=== PATIENT | male | born 1945 | race Caucasian/White ===

== ENCOUNTER → 2020-06-15 13:36 | Outpatient (BNVA) | payer MEDICARE, SELFPAY | PROVIDERS: PCP Internal Medicine; Referring Provider Internal Medicine; Visit Provider Internal Medicine | DX: I25.10 Atherosclerotic heart disease of native coronary artery without angina pectoris (principal); I48.3 Typical atrial flutter; Z87.891 Personal history of nicotine dependence; Z79.82 Long term (current) use of aspirin | CPT/HCPCS: 99214 ==

== ENCOUNTER 2020-09-09 06:08 | Outpatient (REF) | payer MEDICARE, SELFPAY ==
[2020-09-09 08:31] LABS: Prostate Specific Antigen 5.26 ng/mL (<0.05-4.0)
== END 2020-09-09 06:09 | disposition home or self-care (01) ==
LOC: HO.LAB 06:08
PROVIDERS: Visit Provider Internal Medicine
DX: Z12.5 Encounter for screening for malignant neoplasm of prostate (principal); R97.20 Elevated prostate specific antigen [PSA]
CPT/HCPCS: 36415; 84153

== ENCOUNTER 2020-10-19 09:51 | Outpatient (REF) | payer MEDICARE, SELFPAY | END 2020-10-19 09:52 | disposition home or self-care (01) | LOC: HO.MDS 09:51 | PROVIDERS: PCP Internal Medicine; Visit Provider Psychiatry & Neurology Neurology | DX: G70.00 Myasthenia gravis without (acute) exacerbation (principal) | CPT/HCPCS: 96365; 96366; J1572 ==

== ENCOUNTER 2020-10-20 07:30 | Outpatient (REF) | payer MEDICARE, SELFPAY | END 2020-10-20 07:31 | disposition home or self-care (01) | LOC: HO.MDS 07:30 | PROVIDERS: PCP Internal Medicine; Visit Provider Psychiatry & Neurology Neurology | DX: G70.00 Myasthenia gravis without (acute) exacerbation (principal) | CPT/HCPCS: 96365; 96366; J1572 ==

== ENCOUNTER 2020-10-21 07:22 | Outpatient (REF) | payer MEDICARE, SELFPAY | END 2020-10-21 07:23 | disposition home or self-care (01) | LOC: HO.MDS 07:22 | PROVIDERS: PCP Internal Medicine; Visit Provider Psychiatry & Neurology Neurology | DX: G70.00 Myasthenia gravis without (acute) exacerbation (principal) | CPT/HCPCS: 96365; 96366; J1572 ==

== ENCOUNTER 2020-10-22 07:22 | Outpatient (REF) | payer MEDICARE, SELFPAY | END 2020-10-22 07:23 | disposition home or self-care (01) | LOC: HO.MDS 07:22 | PROVIDERS: PCP Internal Medicine; Visit Provider Psychiatry & Neurology Neurology | DX: G70.00 Myasthenia gravis without (acute) exacerbation (principal) | CPT/HCPCS: 96365; 96366; J1572 ==

== ENCOUNTER 2020-11-23 07:25 | Outpatient (REF) | payer MEDICARE, SELFPAY | END 2020-11-23 07:26 | disposition home or self-care (01) | LOC: HO.MDS 07:25 | PROVIDERS: PCP Internal Medicine; Visit Provider Psychiatry & Neurology Neurology | DX: G70.00 Myasthenia gravis without (acute) exacerbation (principal) | CPT/HCPCS: 96365; 96366; J1572 ==

== ENCOUNTER 2020-11-24 07:20 | Outpatient (REF) | payer MEDICARE, SELFPAY | END 2020-11-24 07:21 | disposition home or self-care (01) | LOC: HO.MDS 07:20 | PROVIDERS: PCP Internal Medicine; Visit Provider Psychiatry & Neurology Neurology | DX: G70.00 Myasthenia gravis without (acute) exacerbation (principal) | CPT/HCPCS: 96365; 96366; J1572 ==

== ENCOUNTER 2020-11-25 07:21 | Outpatient (REF) | payer MEDICARE, SELFPAY | END 2020-11-25 07:22 | disposition home or self-care (01) | LOC: HO.MDS 07:21 | PROVIDERS: PCP Internal Medicine; Visit Provider Psychiatry & Neurology Neurology | DX: G70.00 Myasthenia gravis without (acute) exacerbation (principal) | CPT/HCPCS: 96365; 96366; J1572 ==

== ENCOUNTER 2020-11-26 07:20 | Outpatient (REF) | payer MEDICARE, SELFPAY | END 2020-11-26 07:21 | disposition home or self-care (01) | LOC: HO.MDS 07:20 | PROVIDERS: PCP Internal Medicine; Visit Provider Psychiatry & Neurology Neurology | DX: G70.00 Myasthenia gravis without (acute) exacerbation (principal) | CPT/HCPCS: 96365; 96366; J1572 ==

== ENCOUNTER → 2020-12-14 12:55 | Outpatient (BNVA) | payer MEDICARE, SELFPAY | PROVIDERS: PCP Internal Medicine; Visit Provider Internal Medicine | DX: Z45.018 Encounter for adjustment and management of other part of cardiac pacemaker (principal); I25.10 Atherosclerotic heart disease of native coronary artery without angina pectoris; I48.3 Typical atrial flutter; I10 Essential (primary) hypertension | CPT/HCPCS: 99212 ==

== ENCOUNTER 2020-12-21 07:22 | Outpatient (REF) | payer MEDICARE, SELFPAY | END 2020-12-21 07:23 | disposition home or self-care (01) | LOC: HO.MDS 07:22 | PROVIDERS: PCP Internal Medicine; Visit Provider Psychiatry & Neurology Neurology | DX: G70.00 Myasthenia gravis without (acute) exacerbation (principal) | CPT/HCPCS: 96365; 96366; J1572 ==

== ENCOUNTER 2020-12-22 07:22 | Outpatient (REF) | payer MEDICARE, SELFPAY | END 2020-12-22 07:23 | disposition home or self-care (01) | LOC: HO.MDS 07:22 | PROVIDERS: PCP Internal Medicine; Visit Provider Psychiatry & Neurology Neurology | DX: G70.00 Myasthenia gravis without (acute) exacerbation (principal) | CPT/HCPCS: 96365; 96366; J1572 ==

== ENCOUNTER 2020-12-23 07:23 | Outpatient (REF) | payer MEDICARE, SELFPAY | END 2020-12-23 07:24 | disposition home or self-care (01) | LOC: HO.MDS 07:23 | PROVIDERS: PCP Internal Medicine; Visit Provider Psychiatry & Neurology Neurology | DX: G70.00 Myasthenia gravis without (acute) exacerbation (principal) | CPT/HCPCS: 96365; 96366; J1572 ==

== ENCOUNTER 2020-12-24 10:37 | Outpatient (REF) | payer MEDICARE, SELFPAY | END 2020-12-24 10:38 | disposition home or self-care (01) | LOC: HO.MDS 10:37 | PROVIDERS: PCP Internal Medicine; Visit Provider Psychiatry & Neurology Neurology | DX: G70.00 Myasthenia gravis without (acute) exacerbation (principal) | CPT/HCPCS: 96365; 96366; J1572 ==

== ENCOUNTER 2021-01-04 10:39 | Outpatient (REF) | payer MEDICARE, SELFPAY ==
[2021-01-04 11:16] LABS: Estimated Average Glucose 128 mg/dL; Hemoglobin A1c % 6.1 %
[2021-01-04 12:11] LABS: Alanine Aminotransferase 40 U/L (0-40); Albumin Level 3.3 g/dL (3.5-5.0); Alkaline Phosphatase 52 U/L (39-117); Aspartate Amino Transferase 33 U/L (5-37); Bilirubin Direct 0.5 mg/dL (0.0-0.5); Bilirubin Total 1.2 mg/dL (0.0-1.0); Cholesterol 127 mg/dL; Glucose Fasting 79 mg/dL (60-99); HDL Cholesterol 43 mg/dL; LDL Cholesterol Calculated 63 mg/dl; Total Protein 7.2 g/dL (6.5-8.0); Triglycerides 108 mg/dL
[2021-01-04 12:20] LABS: PSA,Total (Free>4and<10) 5.05 ng/mL (0.00-4.00)
[2021-01-04 13:36] LABS: Reflex LDLD? No
[2021-01-05 11:37] LABS: Percent Free Prostate Spec Ag 20 % (calc) (>25); Prostate Specific Ag Total 5.1 ng/mL (< OR = 4.0)
== END 2021-01-04 10:40 | disposition home or self-care (01) ==
LOC: HO.LNP 10:39
PROVIDERS: Visit Provider Internal Medicine
DX: R97.20 Elevated prostate specific antigen [PSA] (principal); R73.03 Prediabetes; E78.00 Pure hypercholesterolemia, unspecified; Z12.5 Encounter for screening for malignant neoplasm of prostate
CPT/HCPCS: 80061; 80076; 82947; 83036; 84153; 84154

== ENCOUNTER 2021-01-22 08:29 | Inpatient (IN) | payer MEDICARE, SELFPAY ==
[2021-01-22] VITALS (9 sets, daily range): BP systolic 77–121; BP diastolic 48–76; PULSE 60–86; RESP 16–22; TEMP 36.1–36.6; O2SAT 95–98; BMI 29.2
--- NOTE | ~2021-01-22 | CT_ITS ---
EXAMINATION: CT ANGIOGRAM OF THE CHEST WITH AND WITHOUT CONTRAST (CT PULMONARY ANGIOGRAM FOR PE) CLINICAL INFORMATION: Reason for Exam rule out PE. Chest pain/syncope COMPARISON: None TECHNIQUE: Prior to contrast administration, noncontrast localization images were obtained. Subsequently, multidetector volumetric imaging was performed from the thoracic inlet to below the diaphragms following the administration of 65 mL Omnipaque 350 intravenous contrast. No contrast reaction reported Sagittal, coronal, and MIP oblique sagittal reformatted images were obtained on the CT workstation, uploaded to PACS, and reviewed. This CT examination was performed using dose optimization techniques as appropriate, variously including the following: *Automated exposure control *Adjustment of mA and/or kV according to patient size (this includes techniques or standardized protocols for targeted exams where dose is matched to indication/reason for exam; i.e. extremities or head) *Use of iterative reconstruction technique Total exam dose-length product 338 mGy-cm FINDINGS: QUALITY OF STUDY/CONTRAST BOLUS: Satisfactory. PULMONARY ARTERIES: No central or segmental pulmonary emboli. THORACIC AORTA: No aneurysm or dissection. LUNG: Quality is degraded by patient respiratory motion artifact. No dense consolidation, mass, or obvious lung nodule. PLEURA: No pleural effusion or pneumothorax. MEDIASTINUM: Normal heart size. No pericardial effusion. No hilar or mediastinal lymphadenopathy. No evidence of septal bowing or right heart strain. Prominent mediastinal fat. CHEST WALL/AXILLA: No axillary or internal mammary lymphadenopathy. Incidental intramuscular lipoma measuring approximately 4.5 cm within the superolateral aspect of the left latissimus dorsi muscle. OSSEOUS STRUCTURES: Chronic superior endplate fracture of T11 with approximately 50% loss of vertebral body height centrally. UPPER ABDOMEN: Unremarkable. No reflux of contrast into the hepatic veins to suggest elevated right heart pressures. CT/CT angio chest PE protocol IMPRESSION: No evidence of pulmonary embolic disease. No parenchymal consolidation or mass. No acute findings. VTE: negative
--- NOTE | ~2021-01-22 | XR_ITS ---
EXAMINATION: XR CHEST CLINICAL INFORMATION: Dyspnea COMPARISON: 04/14/2018 TECHNIQUE: 2 views of the chest were obtained. FINDINGS: Lungs are adequately expanded. Dual-chamber cardiac pacemaker in place with tips of leads overlying the right atrium and right ventricle. Cardiac silhouette is normal in size. The hilar contours are normal. The pulmonary vascular pattern is normal. No pulmonary edema or pleural effusion. Thin linear opacity of scar or atelectasis at the right base. Bones are intact. XR/XR chest 2V IMPRESSION: No acute pulmonary disease.
--- NOTE | ~2021-01-22 | CT_ITS ---
EXAMINATION: CT BRAIN AND CT CERVICAL SPINE WITHOUT CONTRAST. CLINICAL INFORMATION: Dizziness and syncope. COMPARISON: None TECHNIQUE: 5 mm thin axial and reformatted 2 mm thin sagittal and coronal images of brain were obtained. Subsequently axial 3 mm thin and reformatted 2 mm thin sagittal and coronal images of cervical spine were obtained. [facility] FINDINGS: Brain: There is no acute intra-axial, extra-axial bleed, masses or midline shift. There is no acute infarction in evolution. There is no edema. The lateral ventricles are symmetrical in size and configuration without enlargement. Bone windows reveal no calvarial abnormality. There is no scalp soft tissue abnormality. Bilateral paranasal sinuses and mastoid air cells are well-aerated. Cervical spine: There is mild straightening of cervical lordosis. The vertebral heights are normal. There is mild loss of C3-C4, C5-C6 and C6-C7 disc heights. There is grade 1 anterolisthesis C3 over C4. Rest of the vertebral alignment is normal. There is moderate left C3-C4 facet joint arthropathy. The craniovertebral junction and the C1-C2 alignment is normal. There are large ventral osteophyte C5-C6 disc level. The craniovertebral junction and the C1-C2 alignment is normal. The lung apices are clear. CT/CT cervical spine wo con IMPRESSION: No acute intracranial process seen There is mild straightening of cervical lordosis likely spasm. There are degenerative disc changes C3-C4, C5-C6 disc levels with moderate ventral spondylosis. Grade 1 anterolisthesis C3 over C4.. No acute fracture or dislocation.
--- NOTE | ~2021-01-22 | CT_ITS ---
EXAMINATION: CT BRAIN AND CT CERVICAL SPINE WITHOUT CONTRAST. CLINICAL INFORMATION: Dizziness and syncope. COMPARISON: None TECHNIQUE: 5 mm thin axial and reformatted 2 mm thin sagittal and coronal images of brain were obtained. Subsequently axial 3 mm thin and reformatted 2 mm thin sagittal and coronal images of cervical spine were obtained. DL 1619 FINDINGS: Brain: There is no acute intra-axial, extra-axial bleed, masses or midline shift. There is no acute infarction in evolution. There is no edema. The lateral ventricles are symmetrical in size and configuration without enlargement. Bone windows reveal no calvarial abnormality. There is no scalp soft tissue abnormality. Bilateral paranasal sinuses and mastoid air cells are well-aerated. Cervical spine: There is mild straightening of cervical lordosis. The vertebral heights are normal. There is mild loss of C3-C4, C5-C6 and C6-C7 disc heights. There is grade 1 anterolisthesis C3 over C4. Rest of the vertebral alignment is normal. There is moderate left C3-C4 facet joint arthropathy. The craniovertebral junction and the C1-C2 alignment is normal. There are large ventral osteophyte C5-C6 disc level. The craniovertebral junction and the C1-C2 alignment is normal. The lung apices are clear. CT/CT head/brain wo con IMPRESSION: No acute intracranial process seen There is mild straightening of cervical lordosis likely spasm. There are degenerative disc changes C3-C4, C5-C6 disc levels with moderate ventral spondylosis. Grade 1 anterolisthesis C3 over C4.. No acute fracture or dislocation.
--- NOTE | 2021-01-22 08:39 | ECG_ITS ---
Test Reason : WEAKNESS Blood Pressure : / mmHG Vent. Rate : 060 BPM Atrial Rate : 069 BPM P-R Int : 000 ms QRS Dur : 188 ms QT Int : 440 ms P-R-T Axes : 000 103 -36 degrees QTc Int : 440 ms V paced rhythm Abnormal ECG When compared with ECG of 13-FEB-2018 15:28, V paced rhythm has replaced Sinus rhythm Referred By: Generic ED Physician Electronically Signed By:Lang Caldwell
--- NOTE | 2021-01-22 09:15 | ED.GENADULT ---
HPI - General Adult General Chief complaint: Dizziness Stated complaint: syncope Time Seen by Provider: 01/22/21 08:48 Source: patient Mode of arrival: ambulatory Limitations: no limitations History of Present Illness HPI narrative: Patient presents to ED for passing out. Patient states this morning he got up from the chair when he woke up was on the ground. Patient states yesterday he felt dizzy and then passed out. Patient states also having pleuritic chest pain for the past 2 days. Patient denies today having dizziness and then pass out. Patient states just got up and passed out. Patient denies any swelling of lower extremities, calf pain, coughing up blood, fever, or chills. Patient denies any neuro deficit, slurred speech, new loss of vision, paralysis of extremities. Related Data Home Medications Medication Instructions Recorded Confirmed apixaban 5 mg tablet 5 mg PO BID 06/15/20 01/22/21 aspirin 81 mg tablet,delayed 81 mg PO DAILY 06/15/20 01/22/21 release atorvastatin 40 mg tablet 40 mg PO BEDTIME tab 06/15/20 01/22/21 cholecalciferol (vitamin D3) 50 50 mcg PO DAILY 06/15/20 01/22/21 mcg (2,000 unit) capsule colchicine 0.6 mg tablet 0.6 mg PO TID PRN 06/15/20 01/22/21 levothyroxine 25 mcg tablet 25 mcg PO DAILY 06/15/20 01/22/21 pyridostigmine bromide 60 mg tablet 60 mg PO TID 06/15/20 01/22/21 tamsulosin 0.4 mg capsule 0.4 mg PO BEDTIME 06/15/20 01/22/21 valsartan 320 1 tab PO DAILY 06/15/20 01/22/21 mg-hydrochlorothiazide 12.5 mg tablet prednisone 10 mg PO DAILY 01/12/21 01/22/21 artificial tears(hypromellose) 1 drp OPHTHALMIC-LEFT BEDTIME PRN 01/22/21 01/22/21 [GenTeal (hypromellose)] Previous Rx's Medication Instructions Recorded metoprolol tartrate 25 mg tablet 12.5 mg PO BID #90 tab 11/12/20 Allergies Allergy/AdvReac Type Severity Reaction Status Date / Time No Known Allergies Allergy Verified 12/14/20 13:21 Review of Systems Review of Systems: Yes all other systems are reviewed and are negative Constitutional: Constitutional: Reports as per HPI and Reports no additional constitutional complaints Eyes: Eyes: Reports as per HPI and Reports no additional eye complaints ENT: Reports system reviewed and no additional complaints, except as documented and Reports as per HPI Cardiovascular: Cardiovascular: Reports as per HPI, Reports no additional cardiovascular complaints and Reports chest pain (Pleuritic) Respiratory: Respiratory: Reports as per HPI and Reports no additional respiratory complaints Gastrointestinal: Gastrointestinal: Reports as per HPI and Reports no additional gastrointestinal complaints Genitourinary: Genitourinary: Reports no additional male genitourinary complaints and Reports as per HPI Musculoskeletal: Musculoskeletal: Reports no additional musculoskeletal complaints and Reports as per HPI Neurologic: Reports system reviewed and no additional complaints, except as documented and Reports as per HPI Comments: syncope Psychiatric: Psychiatric: Reports no additional psychiatric complaints and Reports as per HPI PMF Past Medical History Medical History (Updated 01/22/21 @ 16:13 by GISELL Arnett) Arthritis Atherosclerotic cardiovascular disease Back pain CVA (cerebral vascular accident) Elevated cholesterol Essential hypertension Gout Hx of hypercalcemia Ocular myasthenia gravis On anticoagulant therapy On beta loly at home Thyroid disease Typical atrial flutter Surgical History (Updated 01/12/21 @ 15:04 by Carol García) H/O carotid endarterectomy History of cardiac catheterization (~02/15/18) History of cardiac pacemaker (~04/13/18) History of laparoscopic cholecystectomy History of left cataract surgery Hx of colonoscopy Family History Family History Father No problems noted. Mother No problems noted. Social History Social History Alcohol intake: current Alcohol intake frequency: a few times a week Patient Tobacco Use Status: Former Tobacco user Smoked in Last 30 Days: No Use of substances other than those prescribed or required for medical reasons: No Advance Directives: No Advance Directives Information Provided: No Physical Exam Vital Signs: Vital Signs: Last Vital Signs Temp 97.8 F 01/22/21 15:27 Pulse 61 01/22/21 15:27 Resp 22 H 01/22/21 15:27 BP 121/76 01/22/21 15:30 Pulse Ox 97 06/04/21 15:27 Body Mass Index 29.2 Const: General: cooperative, healthy appearing, comfortable, no acute distress, well developed, alert and awake HENMT: Head: Yes normal to inspection, Yes No palpable skull fracture present, Yes normocephalic, Yes atraumatic and No abrasion Eyes: Other: 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 General: appearance normal, both eyes and all related structures Neck: Neck: Yes normal visual inspection, Yes full ROM, Yes no lymphadenopathy, Yes no meningeal signs, Yes trachea midline, Yes supple and No tender Chest: Chest palpation & inspection: normal inspection of the chest and normal palpation of entire chest wall Resp: Effort & Inspection: normal respiratory effort and able to speak in complete sentences Auscultation: clear to auscultation bilaterally Cardio: Jugular venous distension: no JVD Heart sounds: S1 normal heart sound present and S2 normal heart sound present GI: Inspection: Yes normal to inspection and No abdominal wall ecchymosis Palpation (GI): Soft to palpation, not firm, nontender, no guarding and not rigid : General: No CVA tenderness and Yes no CVA tenderness Back/Spine/Pelvis: Back: no CVA tenderness, No CVA tenderness and No back tenderness Skin: General skin exam: no rashes or lesions noted and elasticity normal Neuro: Other: Negative facial droop. Negative slurred speech. Negative pronator drift. All extremities equal strength 5+. Finger to nose and rapid hand movement intact. Negative Romberg. No vision of right eye which is chronic as per patient General: patient oriented x3, gait normal, no meningeal signs and CN's II-XI intact bilaterally Extrem: General: Yes normal to inspection and Yes full ROM Psych: Appearance: grossly normal, well kempt and not disheveled Course Course Course Narrative: Patient had labs, EKG, and imaging. Reevaluation(s) Reevaluation #1: Pager EKG sent to artists' model to from a possibility there is no paced rhythm on EKG and pacer maker is not working. EKG was sent to Dr. Caldwell of Cardiology and he reviewed the EKG and states it is paced. Orthostatics were attempted but could not be completely because patient felt dizzy. Reevaluation #2: Spoke with Dr. Rodriguez of Radiology who does not recommend head CTA and only chest CTA due to patient's creatinine.. Recommends doing dry head CT and do the chest CT to rule out PE. Will give patient only 1.5 L due to BNP of 500. Negative for any neuro deficit Reevaluation #3: Spoke with Dr. Camacho of hospitalist admitting aware of case for admission. He will be form of head CT and chest CT when results come back. Time: 11:39 Additional Reevaluation(s): Chest CTA negative for PE. Patient to be admitted for syncope. Head and neck negative for fracture brain bleed, or stroke. Patient blood pressure systolic was 100 on the monitor when he stood down to 86 systolic. At 13:49 patient is not hypertensive 161/141. Rectal exam was done due to slight drop in hemoglobin/hematocrit. Occult guaiac ordered. At 15:07. Dr. Baez of Gastroenterology was contacted due to patient's positive occult stool and being on Eliquis. He was admitted with patient's history, physical exam, and diagnostics. At 16:10 orthostatics negative. Medical Decision Making MDM Narrative Medical decision making narrative: Syncope, ZANA, mild hypo natremia. CHF Lab Data Result diagrams: 01/22/21 09:38 01/22/21 09:38 Labs: Lab Results 01/22/21 01/22/21 01/22/21 Range/Units 09:38 09:38 09:38 WBC 12.8 H (4.8-10.8) X10*3/uL RBC 3.71 L (4.60-5.80) X10*6/uL Hgb 12.0 L (14.0-18.0) g/dl Hct 34.1 L (42-52) % MCV 91.9 (80-98) fL MCH 32.3 (27.0-33.0) pg MCHC 35.2 (31.0-36.0) g/dl RDW 13.2 (11.0-16.0) % Plt Count 204 (160-400) X10*3/uL MPV 9.1 L (9.4-12.4) fL Immature Gran % (Auto) 1.2 H (0.0-0.4) % Neut % (Auto) 66.1 (45-73) % Lymph % (Auto) 23.8 (20-40) % [place] % (Auto) 8.4 (2-11) % Eos % (Auto) 0.3 (0-4) % Baso % (Auto) 0.2 (0-2) % Lymph # (Auto) 3.1 (1.2-4.9) X10*3/uL [place] # (Auto) 1.1 (0.1-1.2) X10*3/uL Eos # (Auto) 0.0 (0.0-0.4) X10*3/uL Baso # (Auto) 0.0 (0.0-0.2) X10*3/uL Abs Immat Gran (auto) 0.15 H (0.00-0.03) X10*3/uL Absolute Neuts (auto) 8.5 H (2.0-8.3) X10*3/uL Absolute Nucleated RBC 0.000 (0.0-0.012) X10*3/uL Nucleated RBC % (auto) 0.0 (0.0-0.2) /100WBC PT 15.8 H (10.8-13.0) SEC INR 1.3 H (0.9-1.1) APTT 30.5 (24.1-38.0) SEC Sodium 127 L (135-145) mmol/L Potassium 4.1 (3.3-5.1) mmol/L Chloride 94 L (96-108) mmol/L Carbon Dioxide 23 (22-29) mmol/L Anion Gap 14 (12-20) BUN 26 H (9-16) mg/dL Creatinine 1.65 H (0.5-1.4) mg/dL Estim Creat Clear Calc 38.2 Estimated GFR 41 Random Glucose 118 H (60-115) mg/dL Calcium 9.9 (8.4-10.2) mg/dL Total Bilirubin 1.6 H (0.0-1.0) mg/dL AST 27 (5-37) U/L ALT 31 (0-40) U/L Alkaline Phosphatase 57 (39-117) U/L Troponin I High Sens (<3.5-35.0) ng/L B-Natriuretic Peptide (<100) pg/mL Total Protein 6.1 L (6.5-8.0) g/dL Albumin 3.5 (3.5-5.0) g/dL Urine Color Urine Appearance Urine pH (5.0-8.0) Ur Specific [place] (1.005-1.025) Urine Protein (NEG-TRACE) MG/DL Urine Glucose (UA) (NEG) MG/DL Urine Ketones (NEG) MG/DL Urine Blood (NEG) Urine Nitrite (NEG) Ur Leukocyte Esterase (NEG) Urine RBC (0) /HPF Urine WBC (0-4) /HPF Ur Squamous Epith Cells /LPF Urine Bacteria /LPF Stool Occult Blood (NEGATIVE) COVID-19 ([facility]) (Negative) COVID-19 Clin Com 01/22/21 01/22/21 01/22/21 Range/Units 09:38 09:38 11:31 WBC (4.8-10.8) X10*3/uL RBC (4.60-5.80) X10*6/uL Hgb (14.0-18.0) g/dl Hct (42-52) % MCV (80-98) fL MCH (27.0-33.0) pg MCHC (31.0-36.0) g/dl RDW (11.0-16.0) % Plt Count (160-400) X10*3/uL MPV (9.4-12.4) fL Immature Gran % (Auto) (0.0-0.4) % Neut % (Auto) (45-73) % Lymph % (Auto) (20-40) % [place] % (Auto) (2-11) % Eos % (Auto) (0-4) % Baso % (Auto) (0-2) % Lymph # (Auto) (1.2-4.9) X10*3/uL [place] # (Auto) (0.1-1.2) X10*3/uL Eos # (Auto) (0.0-0.4) X10*3/uL Baso # (Auto) (0.0-0.2) X10*3/uL Abs Immat Gran (auto) (0.00-0.03) X10*3/uL Absolute Neuts (auto) (2.0-8.3) X10*3/uL Absolute Nucleated RBC (0.0-0.012) X10*3/uL Nucleated RBC % (auto) (0.0-0.2) /100WBC PT (10.8-13.0) SEC INR (0.9-1.1) APTT (24.1-38.0) SEC Sodium (135-145) mmol/L Potassium (3.3-5.1) mmol/L Chloride (96-108) mmol/L Carbon Dioxide (22-29) mmol/L Anion Gap (12-20) BUN (9-16) mg/dL Creatinine (0.5-1.4) mg/dL Estim Creat Clear Calc Estimated GFR Random Glucose (60-115) mg/dL Calcium (8.4-10.2) mg/dL Total Bilirubin (0.0-1.0) mg/dL AST (5-37) U/L ALT (0-40) U/L Alkaline Phosphatase (39-117) U/L Troponin I High Sens 12.4 (<3.5-35.0) ng/L B-Natriuretic Peptide 533 H (<100) pg/mL Total Protein (6.5-8.0) g/dL Albumin (3.5-5.0) g/dL Urine Color YELLOW Urine Appearance CLEAR Urine pH 6.0 (5.0-8.0) Ur Specific [place] 1.025 (1.005-1.025) Urine Protein TRACE (NEG-TRACE) MG/DL Urine Glucose (UA) NEG (NEG) MG/DL Urine Ketones NEG (NEG) MG/DL Urine Blood 3+ H (NEG) Urine Nitrite NEG (NEG) Ur Leukocyte Esterase NEG (NEG) Urine RBC 30-49 H (0) /HPF Urine WBC 0-2 (0-4) /HPF Ur Squamous Epith Cells NONE /LPF Urine Bacteria TRACE /LPF Stool Occult Blood (NEGATIVE) COVID-19 ([facility]) Negative (Negative) COVID-19 Clin Com See Note 01/22/21 01/22/21 Range/Units 14:09 Unknown WBC (4.8-10.8) X10*3/uL RBC (4.60-5.80) X10*6/uL Hgb (14.0-18.0) g/dl Hct (42-52) % MCV (80-98) fL MCH (27.0-33.0) pg MCHC (31.0-36.0) g/dl RDW (11.0-16.0) % Plt Count (160-400) X10*3/uL MPV (9.4-12.4) fL Immature Gran % (Auto) (0.0-0.4) % Neut % (Auto) (45-73) % Lymph % (Auto) (20-40) % [place] % (Auto) (2-11) % Eos % (Auto) (0-4) % Baso % (Auto) (0-2) % Lymph # (Auto) (1.2-4.9) X10*3/uL [place] # (Auto) (0.1-1.2) X10*3/uL Eos # (Auto) (0.0-0.4) X10*3/uL Baso # (Auto) (0.0-0.2) X10*3/uL Abs Immat Gran (auto) (0.00-0.03) X10*3/uL Absolute Neuts (auto) (2.0-8.3) X10*3/uL Absolute Nucleated RBC (0.0-0.012) X10*3/uL Nucleated RBC % (auto) (0.0-0.2) /100WBC PT (10.8-13.0) SEC INR (0.9-1.1) APTT (24.1-38.0) SEC Sodium (135-145) mmol/L Potassium (3.3-5.1) mmol/L Chloride (96-108) mmol/L Carbon Dioxide (22-29) mmol/L Anion Gap (12-20) BUN (9-16) mg/dL Creatinine (0.5-1.4) mg/dL Estim Creat Clear Calc Estimated GFR Random Glucose (60-115) mg/dL Calcium (8.4-10.2) mg/dL Total Bilirubin (0.0-1.0) mg/dL AST (5-37) U/L ALT (0-40) U/L Alkaline Phosphatase (39-117) U/L Troponin I High Sens (<3.5-35.0) ng/L B-Natriuretic Peptide (<100) pg/mL Total Protein (6.5-8.0) g/dL Albumin (3.5-5.0) g/dL Urine Color YELLOW Urine Appearance CLEAR Urine pH 6.0 (5.0-8.0) Ur Specific [place] 1.010 (1.005-1.025) Urine Protein NEG (NEG-TRACE) MG/DL Urine Glucose (UA) NEG (NEG) MG/DL Urine Ketones NEG (NEG) MG/DL Urine Blood 2+ H (NEG) Urine Nitrite NEG (NEG) Ur Leukocyte Esterase NEG (NEG) Urine RBC (0) /HPF Urine WBC (0-4) /HPF Ur Squamous Epith Cells /LPF Urine Bacteria /LPF Stool Occult Blood POSITIVE (NEGATIVE) COVID-19 ([facility]) (Negative) COVID-19 Clin Com ECG Data Interpretation: Wide QRS rhythm. I had right axis. Left bundle-branch block. Among the EKG. Ventricular rate 60. QRS duration 188. QTC 440. Negative STEMI Discharge Plan Discharge Clinical Impression: Syncope, ZANA (acute kidney injury), CHF (congestive heart failure), Acute hyponatremia Patient Disposition: Admitted As Inpatient
[2021-01-22] MEDS: 0.9 % Sodium Chloride 1,000 ML 999 ML IV ×2 (09:40→11:39)
[2021-01-22 09:45] LABS: MANUAL DIFF FLAG NO
[2021-01-22 09:46] LABS: Basophils Percent Auto 0.2 % (0-2); Eosinophils Percent Auto 0.3 % (0-4); Hematocrit 34.1 % (42-52); Imm Gran Abs Auto 0.15 X10*3/uL (0.00-0.03); Imm Gran Pct Auto 1.2 % (0.0-0.4); Lymphocytes Absolute Auto 3.1 X10*3/uL (1.2-4.9); Lymphocytes Percent Auto 23.8 % (20-40); Mean Corpuscular HGB Conc 35.2 g/dl (31.0-36.0); Mean Corpuscular Hemoglobin 32.3 pg (27.0-33.0); Mean Corpuscular Volume 91.9 fL (80-98); Mean Platelet Volume 9.1 fL (9.4-12.4); Monocytes Absolute Auto 1.1 X10*3/uL (0.1-1.2); Monocytes Percent Auto 8.4 % (2-11); Neutrophils Absolute Auto 8.5 X10*3/uL (2.0-8.3); Neutrophils Percent Auto 66.1 % (45-73); Platelet Count 204 X10*3/uL (160-400); Red Blood Count 3.71 X10*6/uL (4.60-5.80); Red Cell Distribution Width 13.2 % (11.0-16.0); White Blood Count 12.8 X10*3/uL (4.8-10.8)
[2021-01-22 09:55] LABS: INTERNATIONAL NORM RATIO 1.3 (0.9-1.1); Prothrombin Time 15.8 SEC (10.8-13.0)
[2021-01-22 09:57] LABS: Partial Thromboplastin Time 30.5 SEC (24.1-38.0)
[2021-01-22 10:02] LABS: COVID-19 Test Negative (Negative); IDNOW Serial# 9DD0AD1C
[2021-01-22 10:19] LABS: Alanine Aminotransferase 31 U/L (0-40); Albumin Level 3.5 g/dL (3.5-5.0); Alkaline Phosphatase 57 U/L (39-117); Anion Gap 14 (12-20); Aspartate Amino Transferase 27 U/L (5-37); Bilirubin Total 1.6 mg/dL (0.0-1.0); Blood Urea Nitrogen 26 mg/dL (9-16); Calcium 9.9 mg/dL (8.4-10.2); Carbon Dioxide 23 mmol/L (22-29); Chloride 94 mmol/L (96-108); Creatinine Clr Calc Pharmacy 38.2; Estimated Glomerular Filt Rate 41; Glucose Random 118 mg/dL (60-115); Potassium 4.1 mmol/L (3.3-5.1); Sodium 127 mmol/L (135-145); Total Protein 6.1 g/dL (6.5-8.0)
[2021-01-22 10:22] LABS: B Type Natriuretic Peptide 533 pg/mL (<100); Troponin-I High Sensitivity 12.4 ng/L (<3.5-35.0)
[2021-01-22] MEDS: iohexoL 350 MG/ML 100 ML INFUS..BTL IV (11:31)
[2021-01-22 11:42] LABS: Glucose Urine UA NEG (NEG); Leukocyte Esterase Urine NEG (NEG); Nitrite Urine NEG (NEG); Specific Gravity - Urine 1.025 (1.005-1.025); Urine Blood 3+ (NEG); Urine Ketones NEG (NEG); Urine Protein TRACE MG/DL (NEG-TRACE)
[2021-01-22 11:47] LABS: Appearance Urine CLEAR; Color Urine YELLOW
[2021-01-22 12:21] LABS: WBC Urine 0-2 /HPF (0-4)
[2021-01-22 12:22] LABS: Bacteria Urine TRACE /LPF; RBC Urine 30-49 /HPF (0)
[2021-01-22 14:25] LABS: OBS Int Ctl Valid YES; OBS1 POSITIVE (NEGATIVE)
[2021-01-22 15:55] LABS: Glucose Urine UA NEG (NEG); Leukocyte Esterase Urine NEG (NEG); Nitrite Urine NEG (NEG); Urine Blood 2+ (NEG); Urine Ketones NEG (NEG); Urine Protein NEG (NEG-TRACE)
[2021-01-22 15:59] LABS: Appearance Urine CLEAR; Color Urine YELLOW
[2021-01-22 16:07] LABS: WBC Urine 0-2 /HPF (0-4)
[2021-01-22] MEDS: Pantoprazole Sodium 40 MG/10 ML VIAL 80 MG IVPUSH (16:59)
--- NOTE | 2021-01-22 17:07 | PM.IMHP ---
History of Present Illness Date of Service: 01/22/21 Chief Complaint: Syncope This is a 75-year-old male who presents to the emergency department after multiple episodes of syncope. Patient states yesterday he had 2 episodes of syncope and this morning had 1 episode. Each episode occurred shortly after standing up. Upon standing patient felt dizzy took a few steps and then passed out. He denies any palpitations. He reports chest pain when moving his upper extremities which has been present for the past 2 days. He denies any associated nausea or vomiting. He has had progressive dyspnea on exertion for the past 2 weeks. He denies any orthopnea or paroxysmal nocturnal dyspnea. His appetite and p.o. intake has not changed but he states that his tells him he does not drink enough fluid. He denies any dark or bloody stools. He denies any diarrhea or vomiting. 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 There have been no other changes to his baseline medications. On arrival to the emergency department his blood pressure was 77/48. He was given 2 L of normal saline and his blood pressure has improved and is currently 121/76. He denies any dizziness at rest. Initially he was too dizzy to have orthostatic blood pressures obtained. Lab work in the emergency department was significant for leukocytosis of 12.8, H/H of 12.0/34.1 which is a slight drop from his baseline. A rectal exam was done and his stool was Hemoccult positive. Chemistries showed sodium of 127, BUN 26, creatinine 1.65. BNP was elevated at 533. Highly sensitive troponin was drawn and have remained flat. EKG shows wide QRS rhythm with a left bundle-branch block. Review of Systems Review of Systems: Yes all other systems are reviewed and are negative Constitutional: Constitutional: Denies chills and Denies fever(s) Cardiovascular: Cardiovascular: Denies palpitations, Reports dyspnea on exertion, Denies orthopnea and Denies paroxysmal nocturnal dyspnea Respiratory: Respiratory: Denies cough and Reports dyspnea on exertion Gastrointestinal: Gastrointestinal: Denies abdominal pain Endocrine: Endocrine: Denies palpitations [facility] Medical History Arthritis Atherosclerotic cardiovascular disease Back pain CVA (cerebral vascular accident) Elevated cholesterol Essential hypertension Gout Hx of hypercalcemia Ocular myasthenia gravis On anticoagulant therapy On beta loly at home Thyroid disease Typical atrial flutter Functional capacity: independent ambulation Family History Father No problems noted. Mother No problems noted. Surgical History H/O carotid endarterectomy History of cardiac catheterization (~02/15/18) History of cardiac pacemaker (~04/13/18) History of laparoscopic cholecystectomy History of left cataract surgery Hx of colonoscopy Social History Alcohol intake: current Alcohol intake frequency: a few times a week Patient Tobacco Use Status: Former Tobacco user Smoked in Last 30 Days: No Use of substances other than those prescribed or required for medical reasons: No Advance Directives: No Advance Directives Information Provided: No Meds Allergies Allergy/AdvReac Type Severity Reaction Status Date / Time No Known Allergies Allergy Verified 12/14/20 13:21 Active Medications: Current Medications Generic Name Dose Route Start Last Admin Trade Name Freq PRN Reason Stop Dose Admin Pharmacy Consult 1 each 01/22/21 12:16 Consult Rx Perform Med Rec MISCELLANE ONCE PRN Consult order Home Medications Medication Instructions Recorded Confirmed Last Taken Type apixaban 5 mg tablet 5 mg PO BID 06/15/20 01/22/21 01/22/21 History aspirin 81 mg tablet,delayed 81 mg PO DAILY 06/15/20 01/22/21 01/22/21 History release atorvastatin 40 mg tablet 40 mg PO BEDTIME tab 06/15/20 01/22/21 01/21/21 History cholecalciferol (vitamin D3) 50 50 mcg PO DAILY 06/15/20 01/22/21 01/22/21 History mcg (2,000 unit) capsule colchicine 0.6 mg tablet 0.6 mg PO TID PRN 06/15/20 01/22/21 Unknown History levothyroxine 25 mcg tablet 25 mcg PO DAILY 06/15/20 01/22/21 01/22/21 History pyridostigmine bromide 60 mg tablet 60 mg PO TID 06/15/20 01/22/21 01/22/21 History tamsulosin 0.4 mg capsule 0.4 mg PO BEDTIME 10/26/20 06/04/21 06/03/21 History valsartan 320 1 tab PO DAILY 06/15/20 01/22/21 01/22/21 History mg-hydrochlorothiazide 12.5 mg tablet prednisone 10 mg PO DAILY 01/12/21 01/22/21 01/22/21 History artificial tears(hypromellose) 1 drp OPHTHALMIC-LEFT BEDTIME PRN 01/22/21 01/22/21 01/21/21 History [GenTeal (hypromellose)] Physical Exam Vital Signs and Narrative: Vital Signs: Last Vital Signs Temp 97.8 F 01/22/21 15:27 Pulse 80 01/22/21 17:03 Resp 16 01/22/21 17:03 BP 104/75 01/22/21 17:03 Pulse Ox 95 01/22/21 17:03 Body Mass Index 29.2 Const: General: comfortable, no acute distress, alert and awake Nutritional Appearance: well nourished Orientation/consciousness: patient oriented x3 HENMT: Head: Yes normocephalic and Yes atraumatic Eyes: Sclerae: sclerae normal Chest: Chest palpation & inspection: normal inspection of the chest Resp: Effort & Inspection: normal respiratory effort and no respiratory distress Cardio: Rate: regular rate Rhythm: regular rhythm GI: Palpation (GI): Soft to palpation and nontender Skin: Other: abrasion left elbow and right knee Neuro: General: patient oriented x3 Cranial nerves: Yes CN's II-XII intact bilaterally and Yes Bilaterally intact EOM present Extrem: Other: trace leg edema Results Labs CBC and Chem 7: 01/22/21 09:38 01/22/21 09:38 Labs: Laboratory Results - last 24 hr 01/22/21 01/22/21 01/22/21 09:38 09:38 09:38 MCV 91.9 MCH 32.3 MCHC 35.2 RDW 13.2 Plt Count 204 MPV 9.1 L Immature Gran % (Auto) 1.2 H Neut % (Auto) 66.1 Lymph % (Auto) 23.8 [place] % (Auto) 8.4 Eos % (Auto) 0.3 Baso % (Auto) 0.2 Lymph # (Auto) 3.1 [place] # (Auto) 1.1 Eos # (Auto) 0.0 Baso # (Auto) 0.0 Abs Immat Gran (auto) 0.15 H Absolute Neuts (auto) 8.5 H Absolute Nucleated RBC 0.000 Nucleated RBC % (auto) 0.0 PT 15.8 H INR 1.3 H APTT 30.5 Anion Gap 14 Estim Creat Clear Calc 38.2 Estimated GFR 41 Random Glucose 118 H Calcium 9.9 Total Bilirubin 1.6 H AST 27 ALT 31 Alkaline Phosphatase 57 Troponin I High Sens B-Natriuretic Peptide Total Protein 6.1 L Albumin 3.5 Urine Color Urine Appearance Urine pH Ur Specific [place] Urine Protein Urine Glucose (UA) Urine Ketones Urine Blood Urine Nitrite Ur Leukocyte Esterase Urine RBC Urine WBC Ur Squamous Epith Cells Urine Bacteria Stool Occult Blood COVID-19 ([facility]) COVID-19 Clin Com Blood Type Antibody Screen 01/22/21 01/22/21 01/22/21 09:38 09:38 11:31 MCV MCH MCHC RDW Plt Count MPV Immature Gran % (Auto) Neut % (Auto) Lymph % (Auto) [place] % (Auto) Eos % (Auto) Baso % (Auto) Lymph # (Auto) [place] # (Auto) Eos # (Auto) Baso # (Auto) Abs Immat Gran (auto) Absolute Neuts (auto) Absolute Nucleated RBC Nucleated RBC % (auto) PT INR APTT Anion Gap Estim Creat Clear Calc Estimated GFR Random Glucose Calcium Total Bilirubin AST ALT Alkaline Phosphatase Troponin I High Sens 12.4 B-Natriuretic Peptide 533 H Total Protein Albumin Urine Color YELLOW Urine Appearance CLEAR Urine pH 6.0 Ur Specific [place] 1.025 Urine Protein TRACE Urine Glucose (UA) NEG Urine Ketones NEG Urine Blood 3+ H Urine Nitrite NEG Ur Leukocyte Esterase NEG Urine RBC 30-49 H Urine WBC 0-2 Ur Squamous Epith Cells NONE Urine Bacteria TRACE Stool Occult Blood COVID-19 (KELLEN) Negative COVID-19 Clin Com See Note Blood Type Antibody Screen 01/22/21 01/22/21 01/22/21 14:09 15:41 16:23 MCV MCH MCHC RDW Plt Count MPV Immature Gran % (Auto) Neut % (Auto) Lymph % (Auto) [place] % (Auto) Eos % (Auto) Baso % (Auto) Lymph # (Auto) [place] # (Auto) Eos # (Auto) Baso # (Auto) Abs Immat Gran (auto) Absolute Neuts (auto) Absolute Nucleated RBC Nucleated RBC % (auto) PT INR APTT Anion Gap Estim Creat Clear Calc Estimated GFR Random Glucose Calcium Total Bilirubin AST ALT Alkaline Phosphatase Troponin I High Sens 12.0 B-Natriuretic Peptide Total Protein Albumin Urine Color Urine Appearance Urine pH Ur Specific [place] Urine Protein Urine Glucose (UA) Urine Ketones Urine Blood Urine Nitrite Ur Leukocyte Esterase Urine RBC Urine WBC Ur Squamous Epith Cells Urine Bacteria Stool Occult Blood POSITIVE COVID-19 ([facility]LL[facility]) COVID-19 Clin Com Blood Type O Positive Antibody Screen NEGATIVE 01/22/21 Unknown MCV MCH MCHC RDW Plt Count MPV Immature Gran % (Auto) Neut % (Auto) Lymph % (Auto) [place] % (Auto) Eos % (Auto) Baso % (Auto) Lymph # (Auto) [place] # (Auto) Eos # (Auto) Baso # (Auto) Abs Immat Gran (auto) Absolute Neuts (auto) Absolute Nucleated RBC Nucleated RBC % (auto) PT INR APTT Anion Gap Estim Creat Clear Calc Estimated GFR Random Glucose Calcium Total Bilirubin AST ALT Alkaline Phosphatase Troponin I High Sens B-Natriuretic Peptide Total Protein Albumin Urine Color YELLOW Urine Appearance CLEAR Urine pH 6.0 Ur Specific [place] 1.010 Urine Protein NEG Urine Glucose (UA) NEG Urine Ketones NEG Urine Blood 2+ H Urine Nitrite NEG Ur Leukocyte Esterase NEG Urine RBC 10-14 H Urine WBC 0-2 Ur Squamous Epith Cells NONE Urine Bacteria NONE Stool Occult Blood COVID-19 ([facility]) COVID-19 Clin Com Blood Type Antibody Screen Imaging Radiologist's Impressions: Impressions Head CT 01/22/21 10:31 IMPRESSION: No acute intracranial process seen There is mild straightening of cervical lordosis likely spasm. There are degenerative disc changes C3-C4, C5-C6 disc levels with moderate ventral spondylosis. Grade 1 anterolisthesis C3 over C4.. No acute fracture or dislocation. Cervical Spine CT 01/22/21 10:33 IMPRESSION: No acute intracranial process seen There is mild straightening of cervical lordosis likely spasm. There are degenerative disc changes C3-C4, C5-C6 disc levels with moderate ventral spondylosis. Grade 1 anterolisthesis C3 over C4.. No acute fracture or dislocation. Chest CTA 01/22/21 10:33 IMPRESSION: No evidence of pulmonary embolic disease. No parenchymal consolidation or mass. No acute findings. VTE: negative Assessment and Plan (1) Syncope: Status: Acute (2) ZANA (acute kidney injury): Status: Acute (3) Typical atrial flutter: Status: Acute (4) Acute hyponatremia: Status: Acute This is a 75-year-old male with a history of atrial flutter on Eliquis, BPH, hypothyroidism hypertension, ocular myasthenia gravis recently started on prednisone who presents the emergency department after multiple episodes of syncope found to be hypotensive with hyponatremia and ZANA. Syncope Likely secondary to orthostatic hypotension. Blood pressure low on arrival, too dizzy to have orthostatics done. BP improved with IV fluid Trop flat x 2. EKG with LBBB -telemetry monitoring to evaluate for arrhythmia -echocardiogram ZANA Likely r/t to hypotension/dehydration -avoid nephrotoxins -follow renal function daily Hyponatremia. Sodium 127 Likely r/t dehydration -will check urine studies, serum osmolarity Dyspnea BNP 533, no baseline for comparison -will obtain echo Heme + stool slight drop in H/H on AC with Eliquis for afib, hold Eliquis -GI consult Aflutter -hold eliquis for heme + stool -continue metoprolol in am if BP allows Hypothyroidism -check thyroid function -Continue Synthroid Ocular myasthenia gravis -continue prednisone, currently being tapered off -continue mestinon HTN -hold valsartan/HCTZ BPH -continue flomax DVT ppx - boots code status - full code HCP - Attending: Dr. Teague
[2021-01-22 18:02] LABS: Osmolality, Serum 270 mosm/kg (281-305)
[2021-01-22 18:08] LABS: Osmolality Urine 436 mosm/kg (373-1093)
[2021-01-22 18:17] LABS: Thyroid Stimulating Hormone 1.38 uIU/mL (0.32-4.0)
[2021-01-22 18:31] LABS: Creatinine Urine 69.49 mg/dL
--- NOTE | 2021-01-22 18:37 | PC.NURSE ---
pt has had meal, he was ambulatory in room to use urinal and denies dizziness at that time. Family at bedside, report called to [facility].
[2021-01-22] MEDS: Atorvastatin Calcium 40 MG TABLET PO (20:18)
[2021-01-22] MEDS: Tamsulosin HCL 0.4 MG CAPSULE PO (20:18)
[2021-01-22] MEDS: 0.9 % Sodium Chloride Flush 3 ML SYRINGE IVFLUSH (20:22)
[2021-01-23] VITALS (11 sets, daily range): BP systolic 94–141; BP diastolic 51–89; PULSE 59–92; RESP 18–22; TEMP 36.1–36.9; O2SAT 91–99
[2021-01-23 07:41] LABS: Hematocrit 32.9 % (42-52); Hemoglobin 11.5 g/dl (14.0-18.0); Mean Corpuscular Hemoglobin 32.3 pg (27.0-33.0); Mean Corpuscular Volume 92.4 fL (80-98); Mean Platelet Volume 9.7 fL (9.4-12.4); Platelet Count 189 X10*3/uL (160-400); Red Blood Count 3.56 X10*6/uL (4.60-5.80); Red Cell Distribution Width 13.3 % (11.0-16.0); White Blood Count 8.2 X10*3/uL (4.8-10.8)
[2021-01-23 08:06] LABS: Blood Urea Nitrogen 20 mg/dL (9-16); Calcium 9.5 mg/dL (8.4-10.2); Creatinine Clr Calc Pharmacy 48.9; Estimated Glomerular Filt Rate 54; Glucose Random 99 mg/dL (60-115)
[2021-01-23 08:14] LABS: B Type Natriuretic Peptide 432 pg/mL (<100)
[2021-01-23 08:27] LABS: Anion Gap 11 (12-20); Carbon Dioxide 26 mmol/L (22-29); Chloride 97 mmol/L (96-108); Potassium 4.6 mmol/L (3.3-5.1); Sodium 129 mmol/L (135-145)
[2021-01-23] MEDS: 0.9 % Sodium Chloride Flush 3 ML SYRINGE IVFLUSH ×3 (09:06→20:42)
[2021-01-23] MEDS: predniSONE 10 MG TABLET PO (09:10)
[2021-01-23] MEDS: Levothyroxine Sodium 25 MCG TABLET PO (09:10)
[2021-01-23] MEDS: Metoprolol Tartrate 12.5 MG HALFTAB PO ×2 (09:10→20:42)
[2021-01-23] MEDS: Cholecalciferol (Vitamin D3) 25 MCG TABLET 50 MCG PO (09:10)
--- NOTE | 2021-01-23 10:43 | P.CONCA_ITS ---
History of Present Illness History of Present Illness Date of Service: 01/23/21 Requesting physician: Alejandra Abreu Chief complaint: Syncope,ZANA, Heme+ Stool Narrative: A 75-year-old gentleman with background history of hypertension, atrial flutter on anticoagulation, congestive heart failure and previous pacemaker. He is presenting for syncope. He said on 3 occasions he stood up and passed out. This happened without any warning signs. No chest pain or shortness of breath. He has been working in the [employer] a lot. He is saying he hydrates himself well. Previously he had trouble with blood pressure fluctuation in his hydrochlorothiazide/valsartan was decreased. He said his blood pressure started fluctuating a lot after that and hydrochlorothiazide was added back again. He has been given IV fluids with improvement in symptoms. His device download did not show any arrhythmia and pacemaker has been functioning fine. He has been diagnosed with the myasthenia and has been on pyridostigmine and prednisone. [facility] Past Medical History Medical History Arthritis Atherosclerotic cardiovascular disease Back pain CVA (cerebral vascular accident) Elevated cholesterol Essential hypertension Gout Hx of hypercalcemia Ocular myasthenia gravis On anticoagulant therapy On beta loly at home Thyroid disease Typical atrial flutter Functional capacity: independent ambulation Family History Family History Father No problems noted. Mother No problems noted. Surgical History Surgical History H/O carotid endarterectomy History of cardiac catheterization (~02/15/18) History of cardiac pacemaker (~04/13/18) History of laparoscopic cholecystectomy History of left cataract surgery Hx of colonoscopy Social History Social History Household Members: Spouse Housing: House Alcohol intake: current Alcohol intake frequency: a few times a week Patient Tobacco Use Status: Former Tobacco user Smoked in Last 30 Days: No Use of substances other than those prescribed or required for medical reasons: No Currently Displaying Signs/Symptoms of Drug Intoxication Withdrawal: No Have you been hit, kicked, punched, or otherwise hurt by someone within the past year? If so, by whom?: No Do you feel safe in your current relationship?: Yes Is there a partner from a previous relationship who is making you feel unsafe now?: No Are you made to feel afraid or neglected: No Advance Directives: No Advance Directives Information Provided: No Do you have thoughts of harming others: None Do you have a plan to hurt others: No Plan Nutrition Risks: No Nutritional Risk service: Yes Current occupational status: retired Meds Allergies Allergy/AdvReac Type Severity Reaction Status Date / Time No Known Allergies Allergy Verified 12/14/20 13:21 Active Medications: Current Medications Generic Name Dose Route Start Last Admin Trade Name Freq PRN Reason Stop Dose Admin Acetaminophen 650 mg 01/22/21 19:23 Acetaminophen 325 Mg Tablet PO Q6H PRN Pain, Mild (Pain Scale 1-3) Artificial Tears 1 drop 01/22/21 19:38 Artificial Tears 15 Ml Drops EYE-LEFT BEDTIME PRN Dry Eye(S) Atorvastatin Calcium 40 mg 01/22/21 21:00 01/22/21 20:18 Atorvastatin Calcium 40 Mg Tablet PO 40 mg BEDTIME ADRIANA Administration Docusate Sodium 100 mg 01/22/21 19:23 Docusate Sodium 100 Mg Capsule PO DAILY PRN Constipation Levothyroxine Sodium 25 mcg 01/23/21 09:00 01/23/21 09:10 Levothyroxine Sodium 25 Mcg Tablet PO 25 mcg DAILY ADRIANA Administration Metoprolol Tartrate 12.5 mg 01/23/21 09:00 01/23/21 09:10 Metoprolol Tartrate 12.5 Mg Halftab PO 12.5 mg BID ADRIANA Administration Protocol Ondansetron HCl 4 mg 01/22/21 19:23 Ondansetron Hcl 4 Mg/2 Ml Vial IVPUSH Q8H PRN Nausea and Vomiting Pharmacy Consult 1 each 01/22/21 12:16 Consult Rx Perform Med Rec MISCELLANE ONCE PRN Consult order Prednisone 10 mg 01/23/21 09:00 01/23/21 09:10 Prednisone 10 Mg Tablet PO 10 mg DAILY ADRIANA Administration Pyridostigmine [place] 60 mg 01/22/21 21:00 01/23/21 09:10 Pyridostigmine [place] 60 Mg Tablet PO 60 mg TID ADRIANA Administration Sodium Chloride 3 ml 01/23/21 00:00 01/23/21 09:06 0.9 % Sodium Chloride Flush 3 Ml Syringe IVFLUSH 3 ml QSHIFT ADRIANA Administration Tamsulosin HCl 0.4 mg 01/22/21 21:00 01/22/21 20:18 Tamsulosin Hcl 0.4 Mg Capsule PO 0.4 mg BEDTIME ADRIANA Administration Vitamin D 50 mcg 01/23/21 09:00 01/23/21 09:10 Cholecalciferol (Vitamin D3) 25 Mcg Tablet PO 50 mcg DAILY ADRIANA Administration Home Medications Medication Instructions Recorded Confirmed Last Taken Type apixaban 5 mg tablet 5 mg PO BID 06/15/20 01/22/21 01/22/21 History aspirin 81 mg tablet,delayed 81 mg PO DAILY 06/15/20 01/22/21 01/22/21 History release atorvastatin 40 mg tablet 40 mg PO BEDTIME tab 06/15/20 01/22/21 01/21/21 His tory cholecalciferol (vitamin D3) 50 50 mcg PO DAILY 06/15/20 01/22/21 01/22/21 History mcg (2,000 unit) capsule colchicine 0.6 mg tablet 0.6 mg PO TID PRN 06/15/20 01/22/21 Unknown History levothyroxine 25 mcg tablet 25 mcg PO DAILY 06/15/20 01/22/21 01/22/21 History pyridostigmine bromide 60 mg tablet 60 mg PO TID 06/15/20 01/22/21 01/22/21 History tamsulosin 0.4 mg capsule 0.4 mg PO BEDTIME 06/15/20 01/22/21 01/21/21 History valsartan 320 1 tab PO DAILY 06/15/20 01/22/21 01/22/21 History mg-hydrochlorothiazide 12.5 mg tablet prednisone 10 mg PO DAILY 01/12/21 01/22/21 01/22/21 History artificial tears(hypromellose) 1 drp OPHTHALMIC-LEFT BEDTIME PRN 01/22/21 01/22/21 01/21/21 History [GenTeal (hypromellose)] Physical Exam Vital Signs: Vital Signs: Last Vital Signs Temp 97.1 F 01/23/21 08:00 Pulse 86 01/23/21 09:32 Resp 22 H 01/23/21 08:00 BP 109/51 L 01/23/21 09:32 Pulse Ox 95 01/23/21 08:00 Body Mass Index 29.2 GENERAL APPEARANCE: in no acute distress, pleasant. Droopy eyelids. NECK: no carotid bruit, no jugular venous distention. SKIN: no suspicious lesions, warm and dry. HEART: no murmurs, regular rate and rhythm. LUNGS: clear to auscultation bilaterally. ABDOMEN: soft, nontender. EXTREMITIES: no edema. PERIPHERAL PULSES: equal. NEUROLOGIC: No gross deficits, AAO X 3 Results Labs and Meds Result diagrams: 01/23/21 06:15 01/23/21 06:15 Lab results: Laboratory Results - last 24 hr 01/22/21 01/22/21 01/22/21 09:38 09:38 11:31 WBC RBC Hgb Hct MCV MCH MCHC RDW Plt Count MPV Absolute Nucleated RBC Nucleated RBC % (auto) Sodium Potassium Chloride Carbon Dioxide Anion Gap BUN Creatinine Estim Creat Clear Calc Estimated GFR Random Glucose Osmolality 270 L Calcium Troponin I High Sens B-Natriuretic Peptide TSH 1.38 Urine Color YELLOW Urine Appearance CLEAR Urine pH 6.0 Ur Specific [place] 1.025 Urine Protein TRACE Urine Glucose (UA) NEG Urine Ketones NEG Urine Blood 3+ H Urine Nitrite NEG Ur Leukocyte Esterase NEG Urine RBC 30-49 H Urine WBC 0-2 Ur Squamous Epith Cells NONE Urine Bacteria TRACE Urine Osmolality Ur Random Sodium Urine Creatinine Stool Occult Blood Blood Type Antibody Screen 01/22/21 01/22/21 01/22/21 14:09 15:41 16:23 WBC RBC Hgb Hct MCV MCH MCHC RDW Plt Count MPV Absolute Nucleated RBC Nucleated RBC % (auto) Sodium Potassium Chloride Carbon Dioxide Anion Gap BUN Creatinine Estim Creat Clear Calc Estimated GFR Random Glucose Osmolality Calcium Troponin I High Sens 12.0 B-Natriuretic Peptide TSH Urine Color Urine Appearance Urine pH Ur Specific [place] Urine Protein Urine Glucose (UA) Urine Ketones Urine Blood Urine Nitrite Ur Leukocyte Esterase Urine RBC Urine WBC Ur Squamous Epith Cells Urine Bacteria Urine Osmolality Ur Random Sodium Urine Creatinine Stool Occult Blood POSITIVE Blood Type O Positive Antibody Screen NEGATIVE 01/22/21 01/22/21 01/22/21 17:55 17:55 Unknown WBC RBC Hgb Hct MCV MCH MCHC RDW Plt Count MPV Absolute Nucleated RBC Nucleated RBC % (auto) Sodium Potassium Chloride Carbon Dioxide Anion Gap BUN Creatinine Estim Creat Clear Calc Estimated GFR Random Glucose Osmolality Calcium Troponin I High Sens B-Natriuretic Peptide TSH Urine Color YELLOW Urine Appearance CLEAR Urine pH 6.0 Ur Specific [place] 1.010 Urine Protein NEG Urine Glucose (UA) NEG Urine Ketones NEG Urine Blood 2+ H Urine Nitrite NEG Ur Leukocyte Esterase NEG Urine RBC 10-14 H Urine WBC 0-2 Ur Squamous Epith Cells NONE Urine Bacteria NONE Urine Osmolality 436 Ur Random Sodium 73.0 Urine Creatinine 69.49 Stool Occult Blood Blood Type Antibody Screen 01/23/21 01/23/21 01/23/21 06:15 06:15 06:15 WBC 8.2 RBC 3.56 L Hgb 11.5 L Hct 32.9 L MCV 92.4 MCH 32.3 MCHC 35.0 RDW 13.3 Plt Count 189 MPV 9.7 Absolute Nucleated RBC 0.000 Nucleated RBC % (auto) 0.0 Sodium 129 L Potassium 4.6 Chloride 97 Carbon Dioxide 26 Anion Gap 11 L BUN 20 H Creatinine 1.29 Estim Creat Clear Calc 48.9 Estimated GFR 54 Random Glucose 99 Osmolality Calcium 9.5 Troponin I High Sens B-Natriuretic Peptide 432 H TSH Urine Color Urine Appearance Urine pH Ur Specific [place] Urine Protein Urine Glucose (UA) Urine Ketones Urine Blood Urine Nitrite Ur Leukocyte Esterase Urine RBC Urine WBC Ur Squamous Epith Cells Urine Bacteria Urine Osmolality Ur Random Sodium Urine Creatinine Stool Occult Blood Blood Type Antibody Screen Imaging Radiologist's impression: Impressions Head CT 01/22/21 10:31 IMPRESSION: No acute intracranial process seen There is mild straightening of cervical lordosis likely spasm. There are degenerative disc changes C3-C4, C5-C6 disc levels with moderate ventral spondylosis. Grade 1 anterolisthesis C3 over C4.. No acute fracture or dislocation. Cervical Spine CT 01/22/21 10:33 IMPRESSION: No acute intracranial process seen There is mild straightening of cervical lordosis likely spasm. There are degenerative disc changes C3-C4, C5-C6 disc levels with moderate ventral spondylosis. Grade 1 anterolisthesis C3 over C4.. No acute fracture or dislocation. Chest CTA 01/22/21 10:33 IMPRESSION: No evidence of pulmonary embolic disease. No parenchymal consolidation or mass. No acute findings. VTE: negative Chest X-Ray 01/22/21 17:19 IMPRESSION: No acute pulmonary disease. Assessment and Plan (1) Syncope: Status: Acute 75-year-old gentleman presented for syncope. Likely cause is orthostasis due to dehydration. He has been given IV fluids with improvement in symptoms. He has hyponatremia. I think the hydrochlorothiazide should be stopped. I have advised him to continue hydration as before. Continue anticoagulation as before. He has been complaining of some shortness of breath for 1 month. He is saying this had been present since he started taking prednisone. I am not sure whether this is related to myasthenia or not. Clinically is not in heart failure. He will need echocardiography which will arrange as outpatient in the coming week. Thank you for allowing me to participate in the care of your patient. Please feel free to contact me if you have any questions. Procedures Date of Service Date of Service: 01/23/21
--- NOTE | 2021-01-23 11:00 | MHC.CM.PN ---
CM met with Patient and his at bedside and addressed IMM with them, providing them with the original and placing a copy on the chart. Patient lives in a house with his and he is functionally indecent. Goal for dc is home no services and CM has initiated and will follow for dc planning. PCP is Dr. Mehran Pagan and Sister.Hortensia is HCP.
--- NOTE | 2021-01-23 15:21 | HO.PM.IMPN ---
Subjective Subjective Date of Service: 01/23/21 Interval History: dizziness/lightheadedness resolved was out in the sun doing a lot of yard work over the last few days some dyspnea over the last 1 month, currently denies Physical Exam Vital Signs: Vital Signs: Last Vital Signs Temp 97.0 F 01/23/21 12:00 Pulse 59 01/23/21 12:00 Resp 20 01/23/21 12:00 BP 94/69 01/23/21 12:00 Pulse Ox 91 L 01/23/21 12:00 Body Mass Index 29.2 Gen: in no acute distress HEENT: sclera anicteric, moist mucus membranes Neck: supple Lungs: clear to auscultation bilaterally Heart: regular rate and rhythm, no murmurs Abd: soft, non-tender, non-distended Ext: no edema Skin: warm/well-perfused Neuro: alert and oriented x3, no focal findings Psych: appropriate affect Objective Data Current Medications Generic Name Dose Route Start Last Admin Trade Name Freq PRN Reason Stop Dose Admin Acetaminophen 650 mg 01/22/21 19:23 Acetaminophen 325 Mg Tablet PO Q6H PRN Pain, Mild (Pain Scale 1-3) Artificial Tears 1 drop 01/22/21 19:38 Artificial Tears 15 Ml Drops EYE-LEFT BEDTIME PRN Dry Eye(S) Atorvastatin Calcium 40 mg 01/22/21 21:00 01/22/21 20:18 Atorvastatin Calcium 40 Mg Tablet PO 40 mg BEDTIME ADRIANA Administration Docusate Sodium 100 mg 01/22/21 19:23 Docusate Sodium 100 Mg Capsule PO DAILY PRN Constipation Levothyroxine Sodium 25 mcg 01/23/21 09:00 01/23/21 09:10 Levothyroxine Sodium 25 Mcg Tablet PO 25 mcg DAILY ADRIANA Administration Metoprolol Tartrate 12.5 mg 01/23/21 09:00 01/23/21 09:10 Metoprolol Tartrate 12.5 Mg Halftab PO 12.5 mg BID ADRIANA Administration Protocol Ondansetron HCl 4 mg 01/22/21 19:23 Ondansetron Hcl 4 Mg/2 Ml Vial IVPUSH Q8H PRN Nausea and Vomiting Pharmacy Consult 1 each 01/22/21 12:16 Consult Rx Perform Med Rec MISCELLANE ONCE PRN Consult order Prednisone 10 mg 01/23/21 09:00 01/23/21 09:10 Prednisone 10 Mg Tablet PO 10 mg DAILY ADRIANA Administration Pyridostigmine [place] 60 mg 01/22/21 21:00 01/23/21 09:10 Pyridostigmine [place] 60 Mg Tablet PO 60 mg TID ADRIANA Administration Sodium Chloride 3 ml 01/23/21 00:00 01/23/21 09:06 0.9 % Sodium Chloride Flush 3 Ml Syringe IVFLUSH 3 ml QSHIFT ADRIANA Administration Tamsulosin HCl 0.4 mg 01/22/21 21:00 01/22/21 20:18 Tamsulosin Hcl 0.4 Mg Capsule PO 0.4 mg BEDTIME ADRIANA Administration Vitamin D 50 mcg 01/23/21 09:00 01/23/21 09:10 Cholecalciferol (Vitamin D3) 25 Mcg Tablet PO 50 mcg DAILY ADRIANA Administration Labs CBC & Chem 7: 01/23/21 06:15 01/23/21 06:15 Labs: Laboratory Results - last 24 hr 01/22/21 01/22/21 01/22/21 09:38 09:38 15:41 WBC RBC Hgb Hct MCV MCH MCHC RDW Plt Count MPV Absolute Nucleated RBC Nucleated RBC % (auto) Sodium Potassium Chloride Carbon Dioxide Anion Gap BUN Creatinine Estim Creat Clear Calc Estimated GFR Random Glucose Osmolality 270 L Calcium Troponin I High Sens 12.0 B-Natriuretic Peptide TSH 1.38 Urine Color Urine Appearance Urine pH Ur Specific [place] Urine Protein Urine Glucose (UA) Urine Ketones Urine Blood Urine Nitrite Ur Leukocyte Esterase Urine RBC Urine WBC Ur Squamous Epith Cells Urine Bacteria Urine Osmolality Ur Random Sodium Urine Creatinine Blood Type Antibody Screen 01/22/21 01/22/21 01/22/21 16:23 17:55 17:55 WBC RBC Hgb Hct MCV MCH MCHC RDW Plt Count MPV Absolute Nucleated RBC Nucleated RBC % (auto) Sodium Potassium Chloride Carbon Dioxide Anion Gap BUN Creatinine Estim Creat Clear Calc Estimated GFR Random Glucose Osmolality Calcium Troponin I High Sens B-Natriuretic Peptide TSH Urine Color Urine Appearance Urine pH Ur Specific [place] Urine Protein Urine Glucose (UA) Urine Ketones Urine Blood Urine Nitrite Ur Leukocyte Esterase Urine RBC Urine WBC Ur Squamous Epith Cells Urine Bacteria Urine Osmolality 436 Ur Random Sodium 73.0 Urine Creatinine 69.49 Blood Type O Positive Antibody Screen NEGATIVE 01/22/21 01/23/21 01/23/21 Unknown 06:15 06:15 WBC 8.2 RBC 3.56 L Hgb 11.5 L Hct 32.9 L MCV 92.4 MCH 32.3 MCHC 35.0 RDW 13.3 Plt Count 189 MPV 9.7 Absolute Nucleated RBC 0.000 Nucleated RBC % (auto) 0.0 Sodium 129 L Potassium 4.6 Chloride 97 Carbon Dioxide 26 Anion Gap 11 L BUN 20 H Creatinine 1.29 Estim Creat Clear Calc 48.9 Estimated GFR 54 Random Glucose 99 Osmolality Calcium 9.5 Troponin I High Sens B-Natriuretic Peptide TSH Urine Color YELLOW Urine Appearance CLEAR Urine pH 6.0 Ur Specific [place] 1.010 Urine Protein NEG Urine Glucose (UA) NEG Urine Ketones NEG Urine Blood 2+ H Urine Nitrite NEG Ur Leukocyte Esterase NEG Urine RBC 10-14 H Urine WBC 0-2 Ur Squamous Epith Cells NONE Urine Bacteria NONE Urine Osmolality Ur Random Sodium Urine Creatinine Blood Type Antibody Screen 01/23/21 06:15 WBC RBC Hgb Hct MCV MCH MCHC RDW Plt Count MPV Absolute Nucleated RBC Nucleated RBC % (auto) Sodium Potassium Chloride Carbon Dioxide Anion Gap BUN Creatinine Estim Creat Clear Calc Estimated GFR Random Glucose Osmolality Calcium Troponin I High Sens B-Natriuretic Peptide 432 H TSH Urine Color Urine Appearance Urine pH Ur Specific [place] Urine Protein Urine Glucose (UA) Urine Ketones Urine Blood Urine Nitrite Ur Leukocyte Esterase Urine RBC Urine WBC Ur Squamous Epith Cells Urine Bacteria Urine Osmolality Ur Random Sodium Urine Creatinine Blood Type Antibody Screen Assessment and Plan (1) Syncope: Status: Acute (2) ZANA (acute kidney injury): Status: Acute (3) Acute hyponatremia: Status: Acute Assessment and Plan: hospital d#2 75yo M with AF on apixaban, hypothyroidism, HTN, BPH, ocular MG on prednisone slow taper presented with multiple brief syncopal episodes, admitted with orthostatic hypotension, hypoNa, ZANA # orthostatic hypotension # hypoNa # ZANA - suspect dehydration. Orthostasis resolved with IV fluid hydration, SCr normalized, Na improving. Held valsartan/HCTZ and would d/c thiazide entirely. Recheck BMP in am. # mild anemia with FOBT+ - held apixaban, GI consult pending. Last C-scope 11/13/15 with tubular adenoma. # subacute dyspnea - TTE- can be done as outpt per Cardiology. # AF - metoprolol - apixaban on hold due to FOBT+ - recent PPM interrogation without any malfunction per Cardiology # HTN - continue metoprolol, held valsartan/HCTZ as above # hypothyroidism - continue LT4; TSH therapeutic # ocular MG - continue prednisone taper, currently at 10 mg/d - continue pyridostigmine # BPH - continue tamsulosin # VTE ppx - SCDs
--- NOTE | 2021-01-23 17:42 | PM.EVENT ---
Event Note Date of Service: 01/23/21 Event Note: GI Consult-Full note dictated--History via patient and EMR Imp: 75 yo male on ASA 81mg, Eliquis, and prednisone presenting with syncope and found to have a mild anemia with Heme + stool. However, he has no GI symptoms whatsoever nor any signs of bleeding such as melena nor hematochezia. His last colonoscopy was in 2015 with removal of a small tubular adenoma by Dr. Jack. He has never had an upper endoscopy. He denies NSAIDs and cigarettes. He has 3-4 drinks on the weekends. He has been very stable here and the plan is for discharge tomorrow. I don't think his syncope was related to any acute GI process nor blood loss. However, given his chronic use of ASA, Eliquis, prednisone, and a little EtOH, the Heme + stool and mild anemia could be from silent UGI blood loss due to ulcer disease or gastritis. Other possibilities would be AVM's, colon polyps, or GI neoplasm. Rec: Check CBC in AM and if stable then I think he could be discharged from a GI standpoint with arrangement for a F/U OV and then an outpatient EGD/Colonoscopy with me or Dr. Jack in the near future. If by chance the Hgb drops further and/or there is any sign of bleeding, we could then proceed with inpatient studies instead. Given his previous medical history of CVA and Afib, I think it would be safe to send him home on the Eliquis but hold the aspirin. I would also start an oral PPI for empiric treatment of any UGI source of blood loss. D/W patient and his sister in detail. They are comfortable with this plan. D/W Dr. Abreu. Thanks.
[2021-01-23] MEDS: Omeprazole 20 MG CAPSULE.DR PO (18:11)
--- NOTE | 2021-01-23 19:20 | CONS_ITS ---
DATE OF SERVICE: 01/23/2021 REASON FOR CONSULTATION: Anemia and heme-positive stool. HISTORY OF PRESENT ILLNESS: History has been obtained from the patient and the medical record. The patient is a 75-year-old male, admitted to the hospital yesterday after a syncopal episode. During his workup, he was found to have heme-positive stool and a mild anemia. Since admission, he has had no signs of bleeding such as melena, hematochezia, nor hematemesis. His hemoglobin has remained stable. He denies any GI symptoms whatsoever including heartburn, dysphagia, anorexia, early satiety, abdominal pain, weight loss, hematochezia, nor melena. He had his last colonoscopy in [address] Jack with removal of a small tubular adenoma. He also had a negative colonoscopy in 2006. He has never had an upper endoscopy. His history is notable for chronic use of aspirin 81 mg, Eliquis, and more recent use of prednisone. He also has 3 or 4 drinks every weekend. He does not smoke nor use any NSAIDs. Since admission here, his hemoglobin has gone down a little bit from the admission of 12.0 to 11.5 today. He did have a hemoglobin of 13.8 in June 2019. His MCV is normal. His stool was heme positive. The patient presently feels well and has been tolerating his diet here in the hospital. He is eager to go home. He apparently has been seen by Cardiology and has been cleared for discharge by then. MEDICATIONS: His present medications include acetaminophen, atorvastatin, vitamin D, Colace, levothyroxine, metoprolol, Zofran, prednisone, pyridostigmine, and tamsulosin. PAST MEDICAL HISTORY: He has previous history of a pacemaker, cholecystectomy, and a right carotid endarterectomy. 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 He does have reported myasthenia gravis as well. SOCIAL HISTORY: He is . He does not smoke. He has several drinks on the weekend. FAMILY HISTORY: Noncontributory. REVIEW OF SYSTEMS: CONSTITUTIONAL: Up until the day of admission, he was feeling well with good energy and good appetite. SKIN: No rash. No pruritus. CARDIAC: No chest pain. PULMONARY: No cough. No hemoptysis. GASTROINTESTINAL: As above. URINARY: No dysuria. No hematuria. PHYSICAL EXAMINATION: GENERAL: The patient is a pleasant, alert, comfortable appearing male. SKIN: Warm and dry. HEENT: Anicteric sclerae. NECK: Supple without lymphadenopathy. ABDOMEN: Soft, nondistended, nontender. LABORATORY DATA: CBCs as above. White blood cell count 8.2, platelets 189,000. PT 15.8 with INR 1.3. Sodium 129, potassium 4.6, BUN 20, creatinine 1.3. Total bilirubin is 1.6 and remainder of the liver profile is normal. A CT angiogram of the chest was negative for pulmonary embolus. IMPRESSION: Given the patient's presentation, I do not think his syncopal episode was related to any acute GI blood loss nor any underlying GI process. I suspect the findings in regard to heme-positive stool and mild anemia may very well be related to his chronic use of low-dose aspirin, Eliquis, prednisone, and a little bit of alcohol on the weekends. Therefore, I do not think urgent endoscopy is required. Of note, he is due for a colonoscopy based on a tubular adenoma removed in 2016. I doubt any GI blood loss is occurring from the colon given no lower GI symptoms and the colonoscopy findings in 2016. The differential diagnosis in regard to blood loss could be silent ulcer disease, silent gastritis, angiodysplasias, recurrent colon polyps, and less likely GI neoplasm. At this point, I would agree with checking of the CBC in the morning and if stable, he could be discharged from a GI standpoint with arrangement for a followup office visit and outpatient upper endoscopy and colonoscopy in the near future. If by chance his hemoglobin drops again tomorrow, we could always change his procedures to be done more urgently on an inpatient basis. Given the previous history of a stroke and atrial fibrillation, I think it would be safe to send him home on his Eliquis, but hold the aspirin until we do the GI procedures. I will also start him on oral omeprazole for empiric treatment of any upper GI source of blood loss. This has all been discussed with the patient and his sister in detail. They are comfortable with the plan. Thank you for the consultation. MD EMELY Jang/SIRI / [id number]
[2021-01-23] MEDS: Atorvastatin Calcium 40 MG TABLET PO (20:41)
[2021-01-23] MEDS: Tamsulosin HCL 0.4 MG CAPSULE PO (20:42)
[2021-01-24] VITALS (7 sets, daily range): BP systolic 94–141; BP diastolic 61–71; PULSE 60–84; RESP 14–20; TEMP 36.1–37; O2SAT 96–98
[2021-01-24] MEDS: Omeprazole 20 MG CAPSULE.DR PO (06:31)
[2021-01-24 06:54] LABS: Hematocrit 33.9 % (42-52); Hemoglobin 11.8 g/dl (14.0-18.0); Mean Corpuscular HGB Conc 34.8 g/dl (31.0-36.0); Mean Corpuscular Volume 91.9 fL (80-98); Mean Platelet Volume 9.9 fL (9.4-12.4); Platelet Count 199 X10*3/uL (160-400); Red Blood Count 3.69 X10*6/uL (4.60-5.80); Red Cell Distribution Width 13.1 % (11.0-16.0); White Blood Count 9.2 X10*3/uL (4.8-10.8)
[2021-01-24 07:08] LABS: Iron 57 mcg/dL (45-160); Percent Iron Saturation 20 % (15-50); Total Iron Binding Capacity 287 mcg/dL (228-428); Unsaturated Iron Binding 230 ug/dL
[2021-01-24 07:10] LABS: Anion Gap 11 (12-20); Blood Urea Nitrogen 17 mg/dL (9-16); Calcium 9.7 mg/dL (8.4-10.2); Carbon Dioxide 26 mmol/L (22-29); Chloride 95 mmol/L (96-108); Creatinine Clr Calc Pharmacy 50.9; Estimated Glomerular Filt Rate 57; Glucose Random 102 mg/dL (60-115); Potassium 4.3 mmol/L (3.3-5.1); Sodium 128 mmol/L (135-145)
[2021-01-24 07:32] LABS: Ferritin 361 ng/mL (20-250)
[2021-01-24] MEDS: Metoprolol Tartrate 12.5 MG HALFTAB PO (08:54)
[2021-01-24] MEDS: 0.9 % Sodium Chloride 1,000 ML 500 ML IVCONT (08:54)
[2021-01-24] MEDS: Cholecalciferol (Vitamin D3) 25 MCG TABLET 50 MCG PO (08:54)
[2021-01-24] MEDS: Levothyroxine Sodium 25 MCG TABLET PO (08:54)
[2021-01-24] MEDS: 0.9 % Sodium Chloride Flush 3 ML SYRINGE IVFLUSH (09:05)
[2021-01-24] MEDS: predniSONE 10 MG TABLET PO (09:06)
--- NOTE | 2021-01-24 14:03 | W.MHC.F2F ---
Service Date Service Date: 01/24/21 Encounter Date of encounter: 01/24/21 Reasons for Services Signs and symptoms assessed: orthostasis, dyspnea Reason for senior living: medication management, medication treatment and teach disease management Reason for physical therapy: home safety and mobility, therapeutic exercises, gait/transfer training, assess need for DME, ADL training and energy conservation MD Overseeing Care: Mehran Pagan Homebound: Leaving the home is medically contraindicated at this time without the asist of a device and/or another person due th the listed conditions above and below. Reason homebound: fall risk related to blood pressure changes, shortness of breath with minimal effort and weakness related to hospital stay Homebound supporting statement: Mr Mendes was admitted to [facility] [place] 01/22-01/24/21 for syncope attributed to orthostatic hypotension. VNA services requested for BP checks, medication management, and home PT. Certification: Based on the above findings, I certify that this patient is confined to the home and needs intermittent senior living care, physical therapy and/or speech therapy, or continues to need occupational therapy. The patient is under my care, and I have initiated the establishment of the plan of care. The patient will be followed by a physician who will periodically review the plan of care.
--- NOTE | 2021-01-24 14:08 | PM.DS ---
DS: Providers Provider Date of Service: 01/24/21 Date of admission: 01/22/21 17:06 Primary care physician: Mehran Pagan MD Consults: 01/22/21 19:23 Consult to Gastroenterology Routine Consulting Provider: Jame Baez Reason for consultation: heme + stools on Eliquis Has provider been notified: No 01/23/21 08:41 Consult to Cardiology Routine Consulting [place] [facility] [place] [facility] Reason for consultation: syncope, orthostasis. Hx AF/PPM DS: Diagnosis Discharge Diagnosis (1) Syncope: Status: Acute (2) ZANA (acute kidney injury): Status: Acute (3) Acute hyponatremia: Status: Acute (4) SOB (shortness of breath): Status: Acute (5) Orthostatic hypotension: Status: Acute (6) Anemia: Status: Acute (7) Guaiac positive stools: Status: Acute DS: Medications Discharge Medications Home Medications: Home Medications Medication Instructions Recorded Confirmed apixaban 5 mg tablet 5 mg PO BID 06/15/20 01/22/21 atorvastatin 40 mg tablet 40 mg PO BEDTIME tab 06/15/20 01/22/21 cholecalciferol (vitamin D3) 50 50 mcg PO DAILY 06/15/20 01/22/21 mcg (2,000 unit) capsule colchicine 0.6 mg tablet 0.6 mg PO TID PRN 06/15/20 01/22/21 levothyroxine 25 mcg tablet 25 mcg PO DAILY 06/15/20 01/22/21 pyridostigmine bromide 60 mg tablet 60 mg PO TID 06/15/20 01/22/21 tamsulosin 0.4 mg capsule 0.4 mg PO BEDTIME 06/15/20 01/22/21 prednisone 10 mg PO DAILY 01/12/21 01/22/21 artificial tears(hypromellose) 1 drp OPHTHALMIC-LEFT BEDTIME PRN 01/22/21 01/22/21 Previous Rx's Medication Instructions Recorded metoprolol tartrate 25 mg tablet 12.5 mg PO BID #90 tab 11/12/20 omeprazole 20 mg PO DAILY@0630 #30 cap 01/24/21 DS: Summary Hospital Course Hospital Course: from admission H+P by hospitalist GSIELL Moran, 01/22/21: This is a 75-year-old male who presents to the emergency department after multiple episodes of syncope. Patient states yesterday he had 2 episodes of syncope and this morning had 1 episode. Each episode occurred shortly after standing up. Upon standing patient felt dizzy took a few steps and then passed out. He denies any palpitations. He reports chest pain when moving his upper extremities which has been present for the past 2 days. He denies any associated nausea or vomiting. He has had progressive dyspnea on exertion for the past 2 weeks. He denies any orthopnea or paroxysmal nocturnal dyspnea. His appetite and p.o. intake has not changed but he states that his tells him he does not drink enough fluid. He denies any dark or bloody stools. He denies any diarrhea or vomiting. 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 There have been no other changes to his baseline medications. On arrival to the emergency department his blood pressure was 77/48. He was given 2 L of normal saline and his blood pressure has improved and is currently 121/76. He denies any dizziness at rest. Initially he was too dizzy to have orthostatic blood pressures obtained. Lab work in the emergency department was significant for leukocytosis of 12.8, H/H of 12.0/34.1 which is a slight drop from his baseline. A rectal exam was done and his stool was Hemoccult positive. Chemistries showed sodium of 127, BUN 26, creatinine 1.65. BNP was elevated at 533. Highly sensitive troponin was drawn and have remained flat. EKG shows wide QRS rhythm with a left bundle-branch block. The patient [place] [facility] [place] orthostatic hypotension, hyponatremia, and acute kidney injury. Dizziness resolved with no further episodes of syncope. Syncope was ultimately attributed to dehydration from a combination of thiazide diuretic and outdoor exertion. Pacer had recently been interrogated and was deemed to have normal function. Blood pressure normalized with holding valsartan/HCTZ as well as giving IV fluid hydration. Creatinine also normalized. Sodium remained around 128. He was found to have mild anemia with heme-positive stool and GI was consulted. Prior colonoscopy 11/13/15 had removed a tubular adenoma. Given that his hemoglobin was stable, outpatient endoscopy and colonoscopy will be arranged by Dr Baez's office; apixaban was resumed, but aspirin was discontinued and he was placed on a PPI. Valsartan/HCTZ was discontinued upon discharge. A repeat BMP and CBC to be done around 01/27/21 was ordered. As for workup of subacute dyspnea he has been experiencing for the past 4-6 weeks, an outpatient echocardiogram and pulmonary function testing were ordered. He was discharged home with VNA services for BP monitoring and home PT and will need primary care, GI, and Cardiology follow-up appointments. Time Spent with Patient Time attestation: Total time spent providing and/or coordinating discharge services: 40 Discharge coordination time: Greater than 30 minutes Quality: Stroke Does the patient have a stroke diagnosis?: No Physical Exam Vital Signs: Vital Signs: Last Vital Signs Temp 97.0 F 01/24/21 08:00 Pulse 66 01/24/21 11:18 Resp 14 01/24/21 08:00 BP 94/65 01/24/21 11:18 Pulse Ox 98 01/24/21 08:00 Body Mass Index 29.2 Gen: in no acute distress HEENT: bilateral ptosis, sclera anicteric, moist mucus membranes Neck: supple Lungs: clear to auscultation bilaterally Heart: regular rate and rhythm, no murmurs Abd: soft, non-tender, non-distended Ext: no edema Skin: warm/well-perfused Neuro: alert and oriented x3, no focal findings Psych: appropriate affect DS: Data Data Completed and Pending Labs on day of discharge: Laboratory Results WBC 9.2 X10*3/uL (4.8-10.8) 01/24/21 05:58 RBC 3.69 X10*6/uL (4.60-5.80) L 01/24/21 05:58 Hgb 11.8 g/dl (14.0-18.0) L 01/24/21 05:58 Hct 33.9 % (42-52) L 01/24/21 05:58 MCV 91.9 fL (80-98) 01/24/21 05:58 MCH 32.0 pg (27.0-33.0) 01/24/21 05:58 MCHC 34.8 g/dl (31.0-36.0) 01/24/21 05:58 RDW 13.1 % (11.0-16.0) 01/24/21 05:58 Plt Count 199 X10*3/uL (160-400) 01/24/21 05:58 MPV 9.9 fL (9.4-12.4) 01/24/21 05:58 Immature Gran % (Auto) 1.2 % (0.0-0.4) H 01/22/21 09:38 Neut % (Auto) 66.1 % (45-73) 01/22/21 09:38 Lymph % (Auto) 23.8 % (20-40) 01/22/21 09:38 [place] % (Auto) 8.4 % (2-11) 01/22/21 09:38 Eos % (Auto) 0.3 % (0-4) 01/22/21 09:38 Baso % (Auto) 0.2 % (0-2) 01/22/21 09:38 Lymph # (Auto) 3.1 X10*3/uL (1.2-4.9) 01/22/21 09:38 [place] # (Auto) 1.1 X10*3/uL (0.1-1.2) 01/22/21 09:38 Eos # (Auto) 0.0 X10*3/uL (0.0-0.4) 01/22/21 09:38 Baso # (Auto) 0.0 X10*3/uL (0.0-0.2) 01/22/21 09:38 Abs Immat Gran (auto) 0.15 X10*3/uL (0.00-0.03) H 01/22/21 09:38 Absolute Neuts (auto) 8.5 X10*3/uL (2.0-8.3) H 01/22/21 09:38 Absolute Nucleated RBC 0.000 X10*3/uL (0.0-0.012) 01/24/21 05:58 Nucleated RBC % (auto) 0.0 /100WBC (0.0-0.2) 01/24/21 05:58 PT 15.8 SEC (10.8-13.0) H 01/22/21 09:38 INR 1.3 (0.9-1.1) H 01/22/21 09:38 APTT 30.5 SEC (24.1-38.0) 01/22/21 09:38 Sodium 128 mmol/L (135-145) L 01/24/21 05:58 Potassium 4.3 mmol/L (3.3-5.1) 01/24/21 05:58 Chloride 95 mmol/L (96-108) L 01/24/21 05:58 Carbon Dioxide 26 mmol/L (22-29) 01/24/21 05:58 Anion Gap 11 (12-20) L 01/24/21 05:58 BUN 17 mg/dL (9-16) H 01/24/21 05:58 Creatinine 1.24 mg/dL (0.5-1.4) 01/24/21 05:58 Estim Creat Clear Calc 50.9 01/24/21 05:58 Estimated GFR 57 01/24/21 05:58 Random Glucose 102 mg/dL (60-115) 01/24/21 05:58 Osmolality 270 mosm/kg (281-305) L 01/22/21 09:38 Calcium 9.7 mg/dL (8.4-10.2) 01/24/21 05:58 Iron 57 mcg/dL (45-160) 01/24/21 05:58 TIBC 287 mcg/dL (228-428) 01/24/21 05:58 % Saturation 20 % (15-50) 01/24/21 05:58 Unsat Iron Binding 230 ug/dL 01/24/21 05:58 Ferritin 361 ng/mL (20-250) H 01/24/21 05:58 Total Bilirubin 1.6 mg/dL (0.0-1.0) H 01/22/21 09:38 AST 27 U/L (5-37) 01/22/21 09:38 ALT 31 U/L (0-40) 01/22/21 09:38 Alkaline Phosphatase 57 U/L (39-117) 01/22/21 09:38 Troponin I High Sens 12.0 ng/L (<3.5-35.0) 01/22/21 15:41 B-Natriuretic Peptide 432 pg/mL (<100) H 01/23/21 06:15 Total Protein 6.1 g/dL (6.5-8.0) L 01/22/21 09:38 Albumin 3.5 g/dL (3.5-5.0) 01/22/21 09:38 TSH 1.38 uIU/mL (0.32-4.0) 01/22/21 09:38 Urine Color YELLOW 01/22/21 Unknown Urine Appearance CLEAR 01/22/21 Unknown Urine pH 6.0 (5.0-8.0) 01/22/21 Unknown Ur Specific [place] 1.010 (1.005-1.025) 01/22/21 Unknown Urine Protein NEG MG/DL (NEG-TRACE) 01/22/21 Unknown Urine Glucose (UA) NEG MG/DL (NEG) 01/22/21 Unknown Urine Ketones NEG MG/DL (NEG) 01/22/21 Unknown Urine Blood 2+ (NEG) H 01/22/21 Unknown Urine Nitrite NEG (NEG) 01/22/21 Unknown Ur Leukocyte Esterase NEG (NEG) 01/22/21 Unknown Urine RBC 10-14 /HPF (0) H 01/22/21 Unknown Urine WBC 0-2 /HPF (0-4) 01/22/21 Unknown Ur Squamous Epith Cells NONE /LPF 01/22/21 Unknown Urine Bacteria NONE /LPF 01/22/21 Unknown Urine Osmolality 436 mosm/kg (373-1093) 01/22/21 17:55 Ur Random Sodium 73.0 mmol/L 01/22/21 17:55 Urine Creatinine 69.49 mg/dL 01/22/21 17:55 Stool Occult Blood POSITIVE (NEGATIVE) 01/22/21 14:09 COVID-19 (KELLEN) Negative (Negative) 01/22/21 09:38 COVID-19 Clin Com See Note 01/22/21 09:38 Blood Type O Positive 01/22/21 16:23 Antibody Screen NEGATIVE 01/22/21 16:[address] 01/22/21 10:31 IMPRESSION: No acute intracranial process seen There is mild straightening of cervical lordosis likely spasm. There are degenerative disc changes C3-C4, C5-C6 disc levels with moderate ventral spondylosis. Grade 1 anterolisthesis C3 over C4.. No acute fracture or dislocation. Cervical Spine CT 01/22/21 10:33 IMPRESSION: No acute intracranial process seen There is mild straightening of cervical lordosis likely spasm. There are degenerative disc changes C3-C4, C5-C6 disc levels with moderate ventral spondylosis. Grade 1 anterolisthesis C3 over C4.. No acute fracture or dislocation. Chest CTA 06/04/21 10:33 IMPRESSION: No evidence of pulmonary embolic disease. No parenchymal consolidation or mass. No acute findings. VTE: negative Chest X-Ray 01/22/21 17:19 IMPRESSION: No acute pulmonary disease. Discharge Plan Discharge Patient Disposition: Home Health Service Discharge Diagnosis: orthostatic hypotension, acute kidney injury, hyponatremia, mild anemia with heme-positive stools, subacute dyspnea Referrals: Mehran Pagan MD [Primary Care Provider] - 1 Week Lang Caldwell MD [Physician] - 1 Week Jame Baez [Physician] - 1 Week Discharge Medications: New omeprazole 20 mg Capsule,Delayed Release(Dr/Ec) 20 mg PO DAILY@0630 Qty: 30 RF: 0 Continued metoprolol tartrate 25 mg tablet 12.5 mg PO BID Qty: 90 RF: 3 artificial tears(hypromellose) 0.3 % Drops 1 drp OPHTHALMIC-LEFT BEDTIME PRN (Reason: Dry Eye(S)) RF: 0 prednisone 20 mg tablet 10 mg PO DAILY RF: 0 atorvastatin 40 mg tablet 40 mg PO BEDTIME RF: 0 levothyroxine 25 mcg tablet 25 mcg PO DAILY RF: 0 pyridostigmine bromide 60 mg tablet 60 mg PO TID RF: 0 tamsulosin 0.4 mg capsule 0.4 mg PO BEDTIME RF: 0 Eliquis 5 mg tablet 5 mg PO BID RF: 0 colchicine 0.6 mg tablet 0.6 mg PO TID PRN (Reason: GOUT) RF: 0 cholecalciferol (vitamin D3) 50 mcg (2,000 unit) capsule 50 mcg PO DAILY RF: 0 Discontinued aspirin 81 mg tablet,delayed release (DR/EC) 81 mg PO DAILY RF: 0 valsartan-hydrochlorothiazide 320-12.5 mg tablet 1 tab PO DAILY RF: 0 Discharge Orders: Discharge Order (Routine); Ordered 01/24/21 Ordered By: Alejandra Abreu Diet: advance to usual diet Activity on Discharge: As tolerated Stand Alone Forms: Patient Portal Discharge page Other Ambulatory Orders: Basic Metabolic Panel (Routine) Timeframe: 20210127 Facility: [facility] - Location: Laboratory Ordered By: Alejandra Abreu Complete Blood Count no Diff (Routine) Timeframe: 1 Week Facility: [facility] - Location: Laboratory Ordered By: Alejandra Abreu CA echo transthoracic complete (Routine) Timeframe: 1 Week Facility: [facility] - Location: Cardiology Ordered By: Alejandra Abreu RT pulmonary function test (Routine) Location: None Selected Ordered By: Alejandra Abreu Care Plan Goals: avoid dehydration normal kidney function and sodium level ensure no GI bleeding work up shortness of breath Health Concerns: orthostatic hypotension acute kidney injury hyponatremia mild anemia with heme-positive stools subacute dyspnea Plan of Treatment: STOP valsartan/HCTZ but continue metoprolol STOP aspirin but OK to resume Eliquis [apixaban] Recheck labs on or around 01/27/21 [non-fasting]: CBC, BMP See your primary care doctor in 1 [address] up with Dr Baez (Gastroenterology) in 1 week to schedule endoscopy/colonoscopy Outpatient workup of shortness of breath: echocardiogram, pulmonary function tests Follow up with Dr Caldwell (Cardiology) in 2 weeks Assessment: see above Patient Instructions: Syncope (DC), Hypotension (DC)
--- NOTE | 2021-01-24 14:29 | MHC.CM.PN ---
Patient has been medically cleared for dc to home today with VNA. CM met with Patient and his , who are agreeable to a referral to [facility]. [facility] has been made aware of today's dc. Last IMM addressed yesterday.
[2021-01-25 09:01] LABS: Folate 9.3 ng/mL (> or = 4.0); Vitamin B12 389 pg/mL (200-900)
== END 2021-01-24 15:10 | disposition home health service (06) | DRG 312 ==
LOC: HO.ED 16:13 → HO.EDOVER 17:40 → HO.IMC 18:05
PROVIDERS: Internal Medicine; Physician Assistant; Admitting Provider Physician Assistant Medical; Emergency Provider Emergency Medicine Emergency Medical Services; PCP Internal Medicine; Visit Provider Family Medicine
DX: I95.1 Orthostatic hypotension (principal); N17.9 Acute kidney failure, unspecified; E87.1 Hypo-osmolality and hyponatremia; I25.10 Atherosclerotic heart disease of native coronary artery without angina pectoris; Z86.73 Personal history of transient ischemic attack (TIA), and cerebral infarction without residual deficits; E03.9 Hypothyroidism, unspecified; G70.00 Myasthenia gravis without (acute) exacerbation; M10.9 Gout, unspecified; N40.0 Benign prostatic hyperplasia without lower urinary tract symptoms; E86.0 Dehydration; T50.2X5A Adverse effect of carbonic-anhydrase inhibitors, benzothiadiazides and other diuretics, initial encounter; Y92.009 Unspecified place in unspecified non-institutional (private) residence as the place of occurrence of the external cause; D64.9 Anemia, unspecified; R19.5 Other fecal abnormalities; Z95.0 Presence of cardiac pacemaker; Z20.822 Contact with and (suspected) exposure to COVID-19; Z87.891 Personal history of nicotine dependence; Z79.01 Long term (current) use of anticoagulants; Z79.52 Long term (current) use of systemic steroids; Z79.890 Hormone replacement therapy; Z79.899 Other long term (current) drug therapy
CPT/HCPCS: 36415; 70450; 71046; 71275; 72125; 80048; 80053; 81001; 82272; 82607; 82728; 82746; 83540; 83880; 83930; 83935; 84300; 84443; 84484; 85025; 85027; 85610; 85730; 86850; 86900; 86901; 87635; 93005; 96361; 96374; 99285; Q9967

== ENCOUNTER 2021-01-27 05:59 | Outpatient (REF) | payer MEDICARE, SELFPAY ==
[2021-01-27 08:10] LABS: Hemoglobin 10.7 g/dl (14.0-18.0); Mean Corpuscular HGB Conc 33.4 g/dl (31.0-36.0); Mean Corpuscular Hemoglobin 31.2 pg (27.0-33.0); Mean Corpuscular Volume 93.3 fL (80-98); Mean Platelet Volume 9.8 fL (9.4-12.4); Platelet Count 175 X10*3/uL (160-400); Red Blood Count 3.43 X10*6/uL (4.60-5.80); Red Cell Distribution Width 13.2 % (11.0-16.0); White Blood Count 8.8 X10*3/uL (4.8-10.8)
[2021-01-27 08:33] LABS: Anion Gap 10 (12-20); Blood Urea Nitrogen 14 mg/dL (9-16); Carbon Dioxide 26 mmol/L (22-29); Chloride 99 mmol/L (96-108); Estimated Glomerular Filt Rate 48; Glucose Random 98 mg/dL (60-115); Sodium 131 mmol/L (135-145)
== END 2021-01-27 06:00 | disposition home or self-care (01) ==
LOC: HO.LAB 05:59
PROVIDERS: PCP Internal Medicine; Visit Provider Family Medicine
DX: N17.9 Acute kidney failure, unspecified (principal); E87.1 Hypo-osmolality and hyponatremia; D64.9 Anemia, unspecified
CPT/HCPCS: 36415; 80048; 85027

== ENCOUNTER → 2021-01-28 13:47 | Outpatient (REF) | payer MEDICARE, SELFPAY ==
--- NOTE | 2021-01-28 13:50 | CA_ITS ---
Transthoracic Echocardiogram Patient (Last, First, Middle): Chaka Mendes J Gender: Male Date of : 1945 Age: 75 Procedure Date: 01/28/2021 Procedure Type: Transthoracic Echocardiogram Location: OP Height: 167.64 cm Weight: 81.65 kg BSA: 1.91 m2 Heart Rate: bpm BP: 117 / 76 mmHg Calibration Checker: DYLAN Referring MD: Lang Caldwell MD Metal Technician: Tl Medina MD Symptoms: I42.9 - Cardiomyopathy, unspecified Study Quality: Technically Difficult ECG Rhythm: Ventriculary paced rhythm Conclusions: - 1. Normal LV systolic function with impaired relaxation filling pattern 2. Moderate mitral and calcification with mild mitral regurgitation 3. Moderately elevated right ventricular systolic pressure 4. No gross pericardial effusion Findings Left Ventricle Normal left ventricular size, thickness, and systolic function. The visually estimated ejection fraction is between 60-65%. There is paradoxical septal motion consistent with a right ventricular pacemaker. Spectral Doppler is indicative of an impaired relaxation filling pattern. E/E prime ratio is between 8 and 15 consistent with indeterminate filling pressures. Right Ventricle Normal right ventricular cavity size and systolic function. There is a pacemaker wire seen in the right ventricle. Atria The left atrium is normal in size. There is lipomatous hypertrophy of the interatrial septum. There is no evidence of interatrial shunt. The right atrium is likely dilated. Aortic Valve There is mild calcification of the aortic valve. There is no aortic valve stenosis. There is no aortic valve regurgitation. Mitral Valve There is mild anterior and posterior mitral leaflet thickening. There is moderate mitral annular calcification. There is mild mitral valve regurgitation. There is no mitral valve stenosis. Pulmonic Valve The pulmonic valve was not well visualized. Tricuspid Valve Normal tricuspid valve structure. There is mild tricuspid valve regurgitation. Moderate pulmonary hypertension is present. Great Vessels All visible segments of the aorta are normal in size. The pulmonary artery was not well visualized. Small plaque is seen in the ascending aorta. Venous The inferior vena cava is normal in size and collapses greater than 50% with inspiration. Pericardium/Pleural There is no evidence of pericardial effusion. Prior Study Comparison Changes noted compared to prior study dated: 01/17/2019. RV systolic pressure has increased to moderately elevated level compared to normal measured 2 years ago Measurements M-Mode Liner Measurements Normals - Women/Men AOV Cusps: 2.10 1.5-2.6 cm/m2 2D Linear Measurements IVSd: 1.11 0.6-0.9/0.6-1.0 cm LVIDd: 3.78 3.9-5.3/4.2-5.9 cm LVIDd Index: 1.98 2.4-3.2/2.2-3.1 cm/m2 LVIDs: 2.48 2.0-3.6 cm LVPWd: 0.93 0.7-1.1 cm Ao Root: 3.50 2.1-3.5 cm LA Diam: 4.20 2.7-3.8/3.0-4.0 cm LAIDs Index: 2.20 1.5-2.3 cm/m2 LV Mass: 148.85 67-162/88-224 g LV Mass Index: 77.93 43-95/49-115 g/m2 LVOT Diam: 2.20 3.0+(-)1.3 cm 2D Systolic Function EF 4C: 69.10 >55% EF 2C: 52.20 >55% EF BiP: 60.70 >55% Mitral Valve MV Pk E: 1.11 MV PK A: 0.35 MV Decel Time: 232.00 E/A: 3.20 E'Lateral: 9.90 E'Medial: 7.62 E/E' Med: 14.60 E/E' Lat: 11.20 PHT: 68.00 MVA PHT: 3.24 Decel [place]: 4.79 Aortic Valve AoV Pk Bill: 1.69 AoV Mn Bill: 1.08 AoV VTI: 0.34 AoV Pk Grad: 11.00 Aov Mn Grad: 6.00 GINA Cont.VTI: 2.43 LVOT LVOT Pk Bill: 1.03 LVOT Mn Bill: 0.81 LVOT VTI: 0.22 LVOT Pk Grad: 4.00 LVOT Mn Grad: 3.00 LVOT Diam: 2.20 LVOT Area: 3.80 Diastolic Function MV Pk E: 1.11 MV Pk A: 0.35 E/A: 3.20 E'Medial: 7.62 E/E' Med: 14.60 E' Laterial: 9.90 E/E' Lat: 11.20 Tricuspid Valve TR Pk Bill: 3.68 TR Pk Grad: 54.00 RA Press: 3.00 RVSP: 57.00 Great Vessels Aorta Ao Root-2D: 3.50 2.0-3.7 cm Ao Asc: 3.40 2.1-3.4 cm Pulmonary Valve PV Pk Bill: 1.30 Peak PV Grad: 7.00 Updated in Other Vendor System with Status of Final Tl Medina MD electronically signed on 01/29/2021 5:04:26 PM with status of Final
== END ==
LOC: HO.CARD 13:47
PROVIDERS: Visit Provider Internal Medicine Cardiovascular Disease
DX: I42.9 Cardiomyopathy, unspecified (principal); R06.02 Shortness of breath
CPT/HCPCS: 93306

== ENCOUNTER 2021-02-01 09:21 | Day surgery (SDC) | payer MEDICARE, SELFPAY ==
[2021-01-26 11:41] VITALS: BMI 29.0
--- NOTE | 2021-01-27 17:03 | MHC.SHP ---
Pre-Procedural Eval Section A The patient is an INPATIENT: No The History & Physical has been completed within 30 days and I have reviewed it.: Yes Section B Chief Complaint: bilateral ptosis,plepharoplasty Allergies: Allergies Allergy/AdvReac Type Severity Reaction Status Date / Time No Known Allergies Allergy Verified 12/14/20 13:21 Plan Diagnosis/Plan: Unchanged I have reviewed the history and physical and performed a pertinent physical examination on my patient. No changes have occurred unless specified.
--- NOTE | 2021-01-29 09:43 | HO.ANESPROP2 ---
Documented by User: Katherine Tolentino 01/29/21 15:20 HPI - Anesthesia Eval Consult details Narrative: 75yo M for Bilateral Senile Aquired Ptosis Repair and [place]phar[place] [facility] [place]22-01[place]24[place]21 with dehydration, ZANA. To see PCP 01/29/21 for clearance - OK to proceed per office staff. Faxed note pending. Pacer in situ Eliquis for aflutter Myesthenia Gravis PMFSH Active Problems Active Problems: All Active Problems (Updated 01/26/21 @ 11:46 by Carol García) Encounter for interrogation of cardiac pacemaker (Acute) Syncope (Acute) ZANA (acute kidney injury) (Acute) CHF (congestive heart failure) (Acute) Acute hyponatremia (Acute) SOB (shortness of breath) (Acute) Orthostatic hypotension (Acute) Anemia (Acute) Guaiac positive stools (Acute) Myasthenia gravis (Acute) Essential hypertension (Acute) Typical atrial flutter (Acute) Atherosclerotic cardiovascular disease (Acute) Past Medical History Medical History Arthritis Atherosclerotic cardiovascular disease Back pain CHF (congestive heart failure) COVID-19 vaccine series completed CVA (cerebral vascular accident) Elevated cholesterol Essential hypertension Gout Hx of hypercalcemia Myasthenia gravis Ocular myasthenia gravis On anticoagulant therapy On beta loly at home Syncope Thyroid disease Typical atrial flutter Family History Family History Father No problems noted. Mother No problems noted. Surgical History Surgical History H/O carotid endarterectomy History of cardiac catheterization (~02/15/18) History of cardiac pacemaker (~04/13/18) History of laparoscopic cholecystectomy History of left cataract surgery Hx of colonoscopy Social History Social History Household Members: Spouse Housing: House Are you a primary career development specialist to a significant other at home: No Do you presently have visiting nurse or other home services: No Alcohol intake: current Alcohol intake frequency: a few times a week Patient Tobacco Use Status: Former Tobacco user Tobacco use type: Cigarette Use of substances other than those prescribed or required for medical reasons: No Have you been hit, kicked, punched, or otherwise hurt by someone within the past year? If so, by whom?: No Are you DNR?: No Advance Directives: No Advance Directives Information Provided: No Advance Directives on File: No Recently lost weight without trying: No Eating poorly because of decreased appetite: No Nutrition Risks: No Nutritional Risk service: Yes Current occupational status: retired Meds Allergies Allergy/AdvReac Type Severity Reaction Status Date / Time No Known Allergies Allergy Verified 12/14/20 13:21 Home Medications Medication Instructions Recorded Confirmed Last Taken Type apixaban 5 mg tablet 5 mg PO BID 06/15/20 02/01/21 01/29/21 History atorvastatin 40 mg tablet 40 mg PO BEDTIME tab 06/15/20 01/22/21 01/21/21 History cholecalciferol (vitamin D3) 50 50 mcg PO DAILY 06/15/20 01/22/21 01/22/21 History mcg (2,000 unit) capsule colchicine 0.6 mg tablet 0.6 mg PO TID PRN 06/15/20 01/22/21 02/01/21 History levothyroxine 25 mcg tablet 25 mcg PO DAILY 06/15/20 01/22/21 02/01/21 History pyridostigmine bromide 60 mg tablet 60 mg PO TID 06/15/20 01/22/21 02/01/21 History tamsulosin 0.4 mg capsule 0.4 mg PO BEDTIME 06/15/20 01/22/21 01/21/21 History prednisone 10 mg PO DAILY 01/12/21 01/22/21 02/01/21 History artificial tears(hypromellose) 1 drp OPHTHALMIC-LEFT BEDTIME PRN 01/22/21 01/22/21 01/21/21 History valsartan-hydrochlorothiazide 1 tab PO DAILY 02/01/21 02/01/21 Unknown History Exam Exam Date and Time: January 29, 2021 0943 Height,Weight and Vital Signs: Height 5 ft 6 in Weight 81.647 kg Narrative Narrative: Pacer Interr 11/2020 Programmed in DDD-CLS mode. Battery life 7 years and 8 months. Remaining capacity 80%. Normal lead parameters. Atrial lead sensitivity changed to do use false AF alarms. Pacing in the atrium 91%. Pacing in the ventricle 6%. No significant arrhythmias. Some rapid rates could be from flutter but others are from noise. Stable thoracic impedance at around 80-90 Ohms. EKG 01/2021 Vent. Rate : 060 BPM Atrial Rate : 069 BPM P-R Int : 000 ms QRS Dur : 188 ms QT Int : 440 ms P-R-T Axes : 000 103 -36 degrees QTc Int : 440 ms V paced rhythm Abnormal ECG When compared with ECG of 13-FEB-2018 15:28, V paced rhythm has replaced Sinus rhythm Assessment and Plan Assessment Anesthesia Assessment: Chart Reviewed Documented by User: Gamaliel Kaur 02/01/21 11:57 PMFSH Past Medical History Medical History Arthritis Atherosclerotic cardiovascular disease Back pain CHF (congestive heart failure) COVID-19 vaccine series completed CVA (cerebral vascular accident) Elevated cholesterol Essential hypertension Gout Hx of hypercalcemia Myasthenia gravis Ocular myasthenia gravis On anticoagulant therapy On beta loly at home Syncope Thyroid disease Typical atrial flutter Family History Family History Father No problems noted. Mother No problems noted. Surgical History Surgical History H/O carotid endarterectomy History of cardiac catheterization (~02/15/18) History of cardiac pacemaker (~04/13/18) History of laparoscopic cholecystectomy History of left cataract surgery Hx of colonoscopy Social History Social History Household Members: Spouse Housing: House Are you a primary career development specialist to a significant other at home: No Do you presently have visiting nurse or other home services: No Alcohol intake: current Alcohol intake frequency: a few times a week Patient Tobacco Use Status: Former Tobacco user Tobacco use type: Cigarette Use of substances other than those prescribed or required for medical reasons: No Have you been hit, kicked, punched, or otherwise hurt by someone within the past year? If so, by whom?: No Are you DNR?: No Advance Directives: No Advance Directives Information Provided: No Advance Directives on File: No Recently lost weight without trying: No Eating poorly because of decreased appetite: No Nutrition Risks: No Nutritional Risk service: Yes Current occupational status: retired [employer] Allergies Allergy/AdvReac Type Severity Reaction Status Date / Time No Known Allergies Allergy Verified 12/14/20 13:21 Home Medications Medication Instructions Recorded Confirmed Last Taken Type apixaban 5 mg tablet 5 mg PO BID 06/15/20 02/01/21 01/29/21 History atorvastatin 40 mg tablet 40 mg PO BEDTIME tab 06/15/20 01/22/21 01/21/21 History cholecalciferol (vitamin D3) 50 50 mcg PO DAILY 06/15/20 01/22/21 01/22/21 History mcg (2,000 unit) capsule colchicine 0.6 mg tablet 0.6 mg PO TID PRN 06/15/20 01/22/21 02/01/21 History levothyroxine 25 mcg tablet 25 mcg PO DAILY 06/15/20 01/22/21 02/01/21 History pyridostigmine bromide 60 mg tablet 60 mg PO TID 06/15/20 01/22/21 02/01/21 History tamsulosin 0.4 mg capsule 0.4 mg PO BEDTIME 06/15/20 01/22/21 01/21/21 History prednisone 10 mg PO DAILY 01/12/21 01/22/21 02/01/21 History artificial tears(hypromellose) 1 drp OPHTHALMIC-LEFT BEDTIME PRN 01/22/21 01/22/21 01/21/21 History valsartan-hydrochlorothiazide 1 tab PO DAILY 02/01/21 02/01/21 Unknown History Exam Airway Mallampati Class: II TM Dist: >3cm Neck ROM: Full Denture: Upper and Lower Heart: [id number] Lungs: cta b/l Assessment and Plan Assessment Anesthesia Assessment: Anesthesia Plan Discussed, PAT Visit and Chart Reviewed Final Anesthetic Review NPO: Yes ASA Class: III Final Preanesthetic Review: No Changes in Pt Med Stat, Meds/Allgs Chart Reviewed, Consent Obtained/Reviewed and Anes Risks/Benef Reviewed Patient Risk: Intermediate Procedure Risk: Low Assessment/Block/Sedation in SS: Assess/Block/Sedation-SS Anesthetic Plan Anesthetic Plan: MAC: and Agree w/ Assess. and Plan Disposition: Standard PACU
[2021-02-01 10:58] VITALS: BP 121/74; PULSE 68; RESP 16; TEMP 36.1; O2SAT 98
[2021-02-01] MEDS: Lactated Ringers 1,000 ML 50 ML IVCONT (11:20)
--- NOTE | 2021-02-01 13:59 | HO.PNOPHT ---
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 ANESTHESIA: Local with sedation ESTIMATED BLOOD LOSS: None COMPLICATIONS: None After obtaining informed consent, the patient was brought to the operating room and placed in supine position. After adequate sedation per Anesthesia, the eyes were prepped and draped in the usual sterile fashion. Attention was directed to the right eye where a double pinch test was completed to assure excess tissue was not removed from the upper lid. The margin was marked at the proposed incision sites. The left eye was done in a similar fashion. 2% Lidocaine with epinephrine was then instilled subcutaneously along the margin of the pre-marked skin incisions. #15 scalpel blade was then utilized to create the incisions. Using a combination of sharp and blunt dissection with Henny scissors, the epidermis was removed. Hemostasis was achieved with cautery. The Levator resection was completed by exteding the wound subcutaneously from the inferior margin of the wound centrally the width of thge cornea to the tarsal plate. A double armed 8-0 gortex suture was passed through the tarsas ensuring that the palpebral conjunctiva was left intact.The levator was resected from the tarsus and passed through the Levator superiorly. Once the lid elevation was deemed appropiate the suture was tied.6-0 plain suture was then utilized to close the incision site. Attention was directed to the left upper lid where subcutaneous 2% with Epinephrine Lidocaine was instilled along the pre-marked areas. A #15 scalpel blade was then utilized to create the incisions followed by sharp and blunt dissection with Henny scissors to remove the overlying epidermis. Hemostasis was achieved with cautery, followed by closure with 6-0 plain suture. The patient tolerated the procedure well. The patient will be followed up in the a.m. Topical antibiotic ointment was instilled over the incision sites and ice as tolerated for 48 hours.
[2021-02-01 14:05] VITALS: BP 99/71; PULSE 62; RESP 22; TEMP 36.6; O2SAT 94
[2021-02-01 14:20] VITALS: BP 147/52; PULSE 70; RESP 24; O2SAT 100
[2021-02-01 14:36] VITALS: BP 123/82; PULSE 67; RESP 20; O2SAT 100
[2021-02-01 14:52] VITALS: BP 127/77; PULSE 68; RESP 20; O2SAT 100
== END 2021-02-01 15:56 | disposition home or self-care (01) ==
PROVIDERS: PCP Internal Medicine; Visit Provider Ophthalmology
PROC: (CPT 15822; principal; 2021-02-01 12:40)
PROC: (CPT 15822; 2021-02-01 12:40)
DX: H02.403 Unspecified ptosis of bilateral eyelids (principal); H02.834 Dermatochalasis of left upper eyelid; H02.831 Dermatochalasis of right upper eyelid
CPT/HCPCS: 15822; J2250; J2405; J3010

== ENCOUNTER 2021-02-26 06:23 | Day surgery (SDC) | payer MEDICARE, SELFPAY ==
[2021-02-19 14:29] VITALS: BMI 29.8
--- NOTE | 2021-02-24 14:10 | P.CONAN_ITS ---
Documented by User: Katherine Tolentino 02/24/21 14:17 HPI - Anesthesia Eval Consult details Narrative: 75yo F [place] Endoscopy and Colon[place] [facility] [place]24[place]21 with dehydration, ZANA. Had Blepharoplasty since admit. Some labored breathing post op, resolved over PACU stay and D/C'd home. Pacer in situ Eliquis for aflutter Myesthenia Gravis, daily prednisone PMFSH Active Problems Active Problems: All Active Problems (Updated 02/19/21 @ 14:20 by Carol García) Encounter for interrogation of cardiac pacemaker (Acute) Acute hyponatremia (Acute) SOB (shortness of breath) (Acute) Orthostatic hypotension (Acute) Anemia (Acute) Guaiac positive stools (Acute) Myasthenia gravis (Acute) Essential hypertension (Acute) Atherosclerotic cardiovascular disease (Acute) Past Medical History Medical History Arthritis Atherosclerotic cardiovascular disease Atrial flutter Back pain CHF (congestive heart failure) COVID-19 vaccine series completed CVA (cerebral vascular accident) Elevated cholesterol Essential hypertension Gout Hx of hypercalcemia Myasthenia gravis Ocular myasthenia gravis On anticoagulant therapy On beta loly at home Syncope Thyroid disease Typical atrial flutter Family History Family History Father No problems noted. Mother No problems noted. Surgical History Surgical History H/O carotid endarterectomy History of blepharoplasty History of cardiac catheterization (~02/15/18) History of cardiac pacemaker (~04/13/18) History of laparoscopic cholecystectomy History of left cataract surgery Hx of colonoscopy Social History Social History Household Members: Spouse Housing: House Are you a primary career transition specialist to a significant other at home: No Do you presently have visiting nurse or other home services: No Alcohol intake: current Alcohol intake frequency: a few times a week Patient Tobacco Use Status: Former Tobacco user Tobacco use type: Cigarette Use of substances other than those prescribed or required for medical reasons: No Have you been hit, kicked, punched, or otherwise hurt by someone within the past year? If so, by whom?: No Are you DNR?: No Advance Directives: No Advance Directives Information Provided: No Advance Directives on File: No Recently lost weight without trying: No Eating poorly because of decreased appetite: No Nutrition Risks: No Nutritional Risk service: Yes Current occupational status: retired Meds Allergies Allergy/AdvReac Type Severity Reaction Status Date / Time No Known Allergies Allergy Verified 02/19/21 14:29 Home Medications Medication Instructions Recorded Confirmed Last Taken Type apixaban 5 mg tablet 5 mg PO BID 06/15/20 02/19/21 02/23/21 History atorvastatin 40 mg tablet 40 mg PO BEDTIME tab 06/15/20 02/19/21 01/21/21 History cholecalciferol (vitamin D3) 50 50 mcg PO DAILY 06/15/20 02/19/21 01/22/21 History mcg (2,000 unit) capsule colchicine 0.6 mg tablet 0.6 mg PO TID PRN 06/15/20 02/19/21 02/01/21 History levothyroxine 25 mcg tablet 25 mcg PO DAILY 06/15/20 02/19/21 02/26/21 History pyridostigmine bromide 60 mg tablet 60 mg PO TID 06/15/20 02/19/21 02/26/21 History tamsulosin 0.4 mg capsule 0.4 mg PO BEDTIME 06/15/20 02/19/21 01/21/21 History prednisone 10 mg PO DAILY 01/12/21 02/19/21 02/01/21 History artificial tears(hypromellose) 1 drp OPHTHALMIC-LEFT BEDTIME PRN 01/22/21 02/19/21 01/21/21 History valsartan-hydrochlorothiazide 1 tab PO DAILY 02/01/21 02/19/21 Unknown History Exam Exam Date and Time: February 24, 2021 1410 Height,Weight and Vital Signs: Height 5 ft 6 in Weight 83.915 kg Narrative Narrative: Pacer Interr 11/2020 Programmed in DDD-CLS mode. Battery life 7 years and 8 months. Remaining capacity 80%. Normal lead parameters. Atrial lead sensitivity changed to do use false AF alarms. Pacing in the atrium 91%. Pacing in the ventricle 6%. No significant arrhythmias. Some rapid rates could be from flutter but others are from noise. Stable thoracic impedance at around 80-90 Ohms. EKG 01/2021 Vent. Rate : 060 BPM Atrial Rate : 069 BPM P-R Int : 000 ms QRS Dur : 188 ms QT Int : 440 ms P-R-T Axes : 000 103 -36 degrees QTc Int : 440 ms V paced rhythm Abnormal ECG When compared with ECG of 13-FEB-2018 15:28, V paced rhythm has replaced Sinus rhythm Assessment and Plan Assessment Anesthesia Assessment: Chart Reviewed Documented by User: Marjorie Clark 02/26/21 07:15 [facility] [place] Past Medical History Medical History Arthritis Atherosclerotic cardiovascular disease Atrial flutter Back pain CHF (congestive heart failure) COVID-19 vaccine series completed CVA (cerebral vascular accident) Elevated cholesterol Essential hypertension Gout Hx of hypercalcemia Myasthenia gravis Ocular myasthenia gravis On anticoagulant therapy On beta loly at home Syncope Thyroid disease Typical atrial flutter Family History Family History Father No problems noted. Mother No problems noted. Surgical History Surgical History H/O carotid endarterectomy History of blepharoplasty History of cardiac catheterization (~02/15/18) History of cardiac pacemaker (~04/13/18) History of laparoscopic cholecystectomy History of left cataract surgery Hx of colonoscopy Social History Social History Household Members: Spouse Housing: House Are you a primary career transition specialist to a significant other at home: No Do you presently have visiting nurse or other home services: No Alcohol intake: current Alcohol intake frequency: a few times a week Patient Tobacco Use Status: Former Tobacco user Tobacco use type: Cigarette Use of substances other than those prescribed or required for medical reasons: No Have you been hit, kicked, punched, or otherwise hurt by someone within the past year? If so, by whom?: No Are you DNR?: No Advance Directives: No Advance Directives Information Provided: No Advance Directives on File: No Recently lost weight without trying: No Eating poorly because of decreased appetite: No Nutrition Risks: No Nutritional Risk service: Yes Current occupational status: retired [employer] Allergies Allergy/AdvReac Type Severity Reaction Status Date / Time No Known Allergies Allergy Verified 02/19/21 14:29 Home Medications Medication Instructions Recorded Confirmed Last Taken Type apixaban 5 mg tablet 5 mg PO BID 06/15/20 02/19/21 02/23/21 History atorvastatin 40 mg tablet 40 mg PO BEDTIME tab 06/15/20 02/19/21 01/21/21 History cholecalciferol (vitamin D3) 50 50 mcg PO DAILY 06/15/20 02/19/21 01/22/21 History mcg (2,000 unit) capsule colchicine 0.6 mg tablet 0.6 mg PO TID PRN 06/15/20 02/19/21 02/01/21 History levothyroxine 25 mcg tablet 25 mcg PO DAILY 06/15/20 02/19/21 02/26/21 History pyridostigmine bromide 60 mg tablet 60 mg PO TID 06/15/20 02/19/21 02/26/21 History tamsulosin 0.4 mg capsule 0.4 mg PO BEDTIME 06/15/20 02/19/21 01/21/21 History prednisone 10 mg PO DAILY 01/12/21 02/19/21 02/01/21 History artificial tears(hypromellose) 1 drp OPHTHALMIC-LEFT BEDTIME PRN 01/22/21 02/19/21 01/21/21 History valsartan-hydrochlorothiazide 1 tab PO DAILY 02/01/21 02/19/21 Unknown History Exam Airway Mallampati Class: II TM Dist: >3cm Neck ROM: Limited Denture: Upper and Lower Assessment and Plan Assessment Anesthesia Assessment: Anesthesia Plan Discussed and Chart Reviewed Final Anesthetic Review NPO: Yes ASA Class: III Final Preanesthetic Review: No Changes in Pt Med Stat, Meds/Allgs Chart Reviewed, Consent Obtained/Reviewed and Anes Risks/Benef Reviewed Patient Risk: Intermediate Procedure Risk: Low Assessment/Block/Sedation in SS: Assess/Block/Sedation-SS Anesthetic Plan Anesthetic Plan: MAC: Disposition: Standard PACU
[2021-02-26 06:50] VITALS: BP 167/90; PULSE 70; RESP 28; TEMP 36.1; O2SAT 95
[2021-02-26 06:51] VITALS: BP 142/68; PULSE 65; RESP 22; TEMP 36.4
[2021-02-26] MEDS: Lactated Ringers 1,000 ML 50 ML IVCONT (06:54)
[2021-02-26 07:19] LABS: Anion Gap 11 (12-20); Blood Urea Nitrogen 8 mg/dL (9-16); Calcium 10.2 mg/dL (8.4-10.2); Carbon Dioxide 25 mmol/L (22-29); Chloride 105 mmol/L (96-108); Creatinine Clr Calc Pharmacy 46.6; Estimated Glomerular Filt Rate 51; Glucose Fasting 108 mg/dL (60-99); Sodium 137 mmol/L (135-145)
--- NOTE | 2021-02-26 07:21 | PC.NURSE ---
b/l lower leg edema pt sts normal
--- NOTE | 2021-02-26 07:25 | P.HPSUR_ITS ---
Pre-Procedural Eval Section A Date of Service: 02/26/21 Section B Chief Complaint: anemia Details of Present Illness: see h&p no changes Relevant Family History (Specify if Yes): No Relevant Social History: None Present Medications: see Short Stay Collaborative assessment Medical History: No relevant PMH (see h&p no changes) History of Previous Operations: No relevant previous surgery Allergies: Allergies Allergy/AdvReac Type Severity Reaction Status Date / Time No Known Allergies Allergy Verified 02/19/21 14:29 Review of Systems Sugical H&P ROS: Negative: Constitution, Cardiovascular, Respiratory, Neur ological, Psychiatric, Hem-Onc, Allergic/Immunologic, Gastrointestinal, Genitourinary, Musculoskeletal, Integumentary, Endocrine and Eyes/Ears/Nose/Throat Exam Surgical H&P Exam: Normal: HEENT, Normal: Heart, Normal: Lungs, Normal: Extremities, Normal: Abdomen, Normal: Skin and Normal: Neurological Plan Diagnosis/Plan: Unchanged I have reviewed the history and physical and performed a pertinent physical examination on my patient. No changes have occurred unless specified.
--- NOTE | 2021-02-26 08:16 | P.BOP_ITS ---
Brief Operative Note Date of Service: 02/26/21 Pre-op diagnosis: anemia, heme pos stool Post-op diagnosis: same (duodenitis, colon polyps) Procedure: egd/colon Surgeon: Evelio Jack Anesthesia: MAC Was an Residential Insurance Inspector used for this Procedure?: No Estimated blood loss (mL): 5 Pathology: other (see nurses notes) Condition: stable Disposition: PACU
[2021-02-26 08:19] VITALS: BP 105/56; PULSE 81; RESP 16; TEMP 36.3; O2SAT 93
[2021-02-26 08:34] VITALS: BP 103/63; PULSE 72; RESP 22; O2SAT 97
--- NOTE | 2021-02-26 08:45 | OP_ITS ---
SURGEON: Evelio Jack MD INDICATIONS: Anemia and Hemoccult-positive stools. PREOPERATIVE DIAGNOSIS: POSTOPERATIVE DIAGNOSIS: PROCEDURE PERFORMED: ESTIMATED BLOOD LOSS: COMPLICATIONS: ANESTHESIA: Monitored anesthesia care. ASSISTANTS: SPECIMENS: PROCEDURES PERFORMED: 1. Upper endoscopy with biopsy. 2. Colonoscopy to the cecum with biopsy and snare polypectomy. DESCRIPTION OF PROCEDURE: History and physical performed. The risks and benefits of the procedure were explained to the patient and informed consent was obtained. The patient was placed in left lateral decubitus position. The Olympus video gastroscope was introduced into the esophagus, stomach, and duodenum. Examination was performed and the scope was removed. He was repositioned for colonoscopy. A digital rectal exam was performed and it was found to be normal. The Olympus pediatric video colonoscope was introduced into the rectum and advanced to the cecum without difficulty. The cecum was identified by transillumination, palpation, and identification of the ileocecal valve. Examination was performed. The scope was removed. He tolerated both procedures well and was returned to the recovery area in stable condition. FINDINGS: UPPER ENDOSCOPY: Esophagus: The esophagus was normal. There was no esophagitis. Stomach: The stomach showed no ulcer. There was some mild erythema in the antrum. Antral biopsies were obtained to rule out Helicobacter pylori. Duodenum: There was duodenitis involving the bulb and second portion with a suggestion of 2 to 3 mm remnant of a healing ulcer in the duodenal bulb. There was no active bleeding or visible vessel. No therapy was performed. COLONOSCOPY: The terminal ileum was not examined. The visualized colonic mucosa was normal. There was a nodular area at about 35 cm and an area of diverticulosis in the sigmoid, which was biopsied. This measured approximately 10 x 15 mm. This did not appear malignant. There were multiple polyps, which were removed, most measured less than 5 mm except for a polyp at the 65 cm meagan, which measured approximately 8 to 10 mm. This was removed with a snare. The other polyps were removed with biopsy forceps in the cecum x2 and at the hepatic flexure. Retroflexed examination showed large internal hemorrhoids. There were large external hemorrhoids noted on digital rectal examination. IMPRESSION: 1. Duodenitis. 2. Colon polyps. 3. Nodular sigmoid as above. 4. Hemorrhoids. RECOMMENDATION: Follow up the biopsy results. MD KENY Gray/SIRI / [id number] ANNE
[2021-02-26 08:49] VITALS: BP 104/64; PULSE 69; RESP 20; O2SAT 97
== END 2021-02-26 09:29 | disposition home or self-care (01) ==
PROVIDERS: Nurse Practitioner; PCP Internal Medicine; Visit Provider Internal Medicine Gastroenterology
PROC: (CPT 45385; principal; 2021-02-26 07:30)
DX: D64.9 Anemia, unspecified (principal); R19.5 Other fecal abnormalities; Z86.010 Personal history of colon polyps; D12.0 Benign neoplasm of cecum; D12.3 Benign neoplasm of transverse colon; K63.5 Polyp of colon; K29.80 Duodenitis without bleeding; K57.30 Diverticulosis of large intestine without perforation or abscess without bleeding; K64.8 Other hemorrhoids; K64.4 Residual hemorrhoidal skin tags; E78.00 Pure hypercholesterolemia, unspecified; E80.4 Gilbert syndrome; H54.61 Unqualified visual loss, right eye, normal vision left eye; I11.0 Hypertensive heart disease with heart failure; I50.9 Heart failure, unspecified; G70.00 Myasthenia gravis without (acute) exacerbation; I48.3 Typical atrial flutter; Z79.01 Long term (current) use of anticoagulants; Z79.82 Long term (current) use of aspirin; Z79.52 Long term (current) use of systemic steroids; Z95.0 Presence of cardiac pacemaker; Z90.49 Acquired absence of other specified parts of digestive tract; Z86.73 Personal history of transient ischemic attack (TIA), and cerebral infarction without residual deficits
CPT/HCPCS: 45385; 45380; 43239; 36415; 80048; 88305; 88342; J2370

== ENCOUNTER → 2021-03-08 10:42 | Outpatient (REF) | payer MEDICARE, SELFPAY ==
--- NOTE | ~2021-03-08 | NM_ITS ---
EXAMINATION: NM BONE SCAN OF THE WHOLE BODY CLINICAL INFORMATION: Pleurodynia, rib pain. COMPARISON: No previous bone scan is available for comparison. Radiographs of the chest dated 01/22/2021 are available for comparison. CT angiogram of the chest, CT of the cervical spine and CT of the head all dated 01/22/2021 are also available for comparison. TECHNIQUE: Multiple gamma scintillation camera images of the whole body were performed 2.75 hours following the intravenous administration of 31 mCi Tc-99m MDP. FINDINGS: In the head, no significant abnormalities are present. In the thoracic cage and upper extremities, there is a small faint focus of increased activity in the posterolateral aspect of the left 10th rib. No other rib abnormalities are present. More intensely increased activity which is still mild intensity in the sternoclavicular, acromioclavicular and left glenohumeral articulations, all likely arthritic. In the spine, there is moderately increased activity in the thoracic spine at the T5 vertebral body. A minimal S-shaped well compensated thoracolumbar scoliosis is present with lumbar convexity to the left. A focus of mildly increased activity is present in the left posterior elements of the mid cervical spine, likely due to facet arthropathy. Additional faint foci of increased activity are present in the right posterior elements at L3-L4 and the left posterior elements at L4-L5, also likely due to facet arthropathy. In the pelvis, foci of minimally increased activity are present in the acetabula bilaterally. In the lower extremities, there is mildly increased activity in the medial compartments of both knees. In the feet there are faint foci of increased activity distally in the second digit of the left foot and distally in the third or fourth digit of the right foot, likely arthritic or traumatic. No other definite bony abnormalities are noted. The urinary bladder and faint visualization of both kidneys are noted. The CT scan dated 01/22/2021 shows no definite abnormality in the midthoracic spine at the T4 level of the corresponds to the prominent bone scan abnormality at this site described above. There is compression deformity at T11, but no significant corresponding abnormality is present on the bone scan at this site indicating this is likely an old compression fracture. The posterolateral aspect of the left 10th rib in the region of the mild bone scan abnormality described above is outside the [id number] of this CT scan and cannot be compared. NM/NM bone scan whole body IMPRESSION: 1. A prominent nonspecific abnormality is present in the midthoracic spine, likely in the T5 vertebral body. This is nonspecific but most suspicious for a recent compression fracture. A metastatic focus could also be responsible for this abnormality. No definite explanation for this abnormality is present on the recent CT scan of the chest, and MRI performed without and with intravenous contrast of the thoracic spine is recommended to further characterize this prominent abnormality. 2. A small faint abnormality in the posterolateral aspect of the left 10th rib is nonspecific, but most consistent with continued bone remodeling at an old fracture site. 3. A few additional mild nonspecific abnormalities are noted as described above and these are all likely arthritic or traumatic in etiology. None of these abnormalities is strongly suspicious for metastatic disease.
== END ==
LOC: HO.NUCMED 10:42
PROVIDERS: PCP Internal Medicine; Visit Provider Internal Medicine
DX: R07.81 Pleurodynia (principal)
CPT/HCPCS: 78306; A9503

== ENCOUNTER 2021-03-19 13:01 | Emergency (ER) | payer OTHER, SELFPAY ==
--- NOTE | ~2021-03-19 | US_ITS ---
EXAMINATION: US VENOUS ULTRASOUND WITH DOPPLER LOWER EXTREMITY, BILATERAL CLINICAL INFORMATION: Bilateral lower extremity edema COMPARISON: None TECHNIQUE: Ultrasound of the deep veins is performed from the hip to the calf with compression sonography and color and pulse Doppler assessment. Spectral analysis with color-flow imaging is performed. FINDINGS: RIGHT: There is normal venous compression and respiratory variation and augmented flow. The visualized common femoral vein, superficial femoral vein, profunda femoral vein, popliteal vein, and the trifurcation region shows no evidence of deep venous thrombosis. There is no significant popliteal fossa cyst. LEFT: There is normal venous compression and respiratory variation and augmented flow. The visualized common femoral vein, superficial femoral vein, profunda femoral vein, popliteal vein, and the trifurcation region shows no evidence of deep venous thrombosis. There is no significant popliteal fossa cyst. If the patient's symptoms persist, followup ultrasound in 5 days 7 days might be of value to exclude proximal propagation from a non-visualized calf vein. US/US venous duplex LE BI IMPRESSION: No DVT demonstrated in the bilateral lower extremity.
--- NOTE | ~2021-03-19 | XR_ITS ---
EXAMINATION: XR CHEST CLINICAL INFORMATION: SOB and bilateral leg swelling. COMPARISON: None TECHNIQUE: Frontal view of the chest was obtained. FINDINGS: Both lungs are fairly moderately expanded with right basal atelectasis. No acute pneumonic process seen. There is 1 cm nodular the right CP angle seventh posterior interspace. There is mild elevation of right hemidiaphragm. Heart size and pulmonary vascularity is normal. There are dual pacer electrodes in right atrium and right ventricle. No gross bony abnormality seen. XR/XR chest 1V IMPRESSION: Minimal atelectatic changes right lung base. There is a 1 cm nodule right CP angle.
[2021-03-19 14:06] VITALS: BP 141/69; PULSE 77; RESP 19; TEMP 35.8; O2SAT 97; BMI 31.6
--- NOTE | 2021-03-19 16:21 | ECG_ITS ---
Test Reason : EDEMA Blood Pressure : / mmHG Vent. Rate : 060 BPM Atrial Rate : 060 BPM P-R Int : 162 ms QRS Dur : 082 ms QT Int : 398 ms P-R-T Axes : 032 -06 019 degrees QTc Int : 398 ms Atrial-paced rhythm Abnormal ECG When compared with ECG of 22-JAN-2021 08:40, Rhythm change Referred By: Becky Rondon Electronically Signed By:CHAIM COTA
--- NOTE | 2021-03-19 16:36 | PC.NURSE ---
pt states he had been using prednisone and was tapered, he states since then he has developed swellibng to lower legs. HE has pitting edema to bilateral lower extremities to mid thigh. Denies SOB.
[2021-03-19 16:53] VITALS: BP 146/70; PULSE 72; RESP 16; O2SAT 94
[2021-03-19 16:59] LABS: MANUAL DIFF FLAG NO
[2021-03-19 17:03] LABS: Basophils Percent Auto 0.1 % (0-2); Eosinophils Absolute Auto 0.1 X10*3/uL (0.0-0.4); Eosinophils Percent Auto 1.7 % (0-4); Hematocrit 34.3 % (42-52); Hemoglobin 11.1 g/dl (14.0-18.0); Imm Gran Abs Auto 0.02 X10*3/uL (0.00-0.03); Imm Gran Pct Auto 0.3 % (0.0-0.4); Lymphocytes Absolute Auto 2.1 X10*3/uL (1.2-4.9); Lymphocytes Percent Auto 28.1 % (20-40); Mean Corpuscular HGB Conc 32.4 g/dl (31.0-36.0); Mean Corpuscular Volume 92.7 fL (80-98); Monocytes Absolute Auto 1.1 X10*3/uL (0.1-1.2); Monocytes Percent Auto 14.3 % (2-11); Neutrophils Absolute Auto 4.1 X10*3/uL (2.0-8.3); Neutrophils Percent Auto 55.5 % (45-73); Platelet Count 216 X10*3/uL (160-400); Red Cell Distribution Width 12.8 % (11.0-16.0); White Blood Count 7.4 X10*3/uL (4.8-10.8)
[2021-03-19 17:08] LABS: INTERNATIONAL NORM RATIO 1.5 (0.9-1.1); Prothrombin Time 16.9 SEC (9.9-13.0)
[2021-03-19 17:39] LABS: Alanine Aminotransferase 13 U/L (0-40); Albumin Level 4.1 g/dL (3.5-5.0); Alkaline Phosphatase 121 U/L (39-117); Anion Gap 15 (12-20); Aspartate Amino Transferase 22 U/L (5-37); B Type Natriuretic Peptide 114 pg/mL (<100); Bilirubin Total 1.4 mg/dL (0.0-1.0); Blood Urea Nitrogen 13 mg/dL (9-16); Calcium 10.7 mg/dL (8.4-10.2); Carbon Dioxide 26 mmol/L (22-29); Chloride 104 mmol/L (96-108); Creatinine Clr Calc Pharmacy 46.2; Estimated Glomerular Filt Rate 48; Glucose Random 97 mg/dL (60-115); Magnesium 2.2 mg/dL (1.6-2.6); Potassium 4.8 mmol/L (3.3-5.1); Sodium 140 mmol/L (135-145); Total Protein 6.7 g/dL (6.5-8.0); Troponin-I High Sensitivity 7.5 ng/L (<3.5-35.0)
--- NOTE | 2021-03-19 18:03 | ED_ITS ---
HPI - Extremity Problem General Chief complaint: Extremity Problem Stated complaint: knees and legs swollen Time Seen by Provider: 03/19/21 16:20 Source: patient and family ( at bedside) Mode of arrival: ambulatory Limitations: no limitations History of Present Illness HPI Narrative: 75-year-old male with a past medical history of arthrosclerotic cardiovascular disease, hypertension, hyperlipidemia, orthostatic hypotension, atrial flutter, CHF with pacemaker in place on Eliquis, CVA, anemia, gout, Myasthenia gravis and ocular myasthenia being followed by Ophthalmology who was recently placed on steroids for approximately 4-6 weeks for his ocular myasthenia although patient reported that he was having shortness of breath and bilateral lower extremity edema and they discontinued the steroid by a taper. He reports he has been off the steroids for approximately 4 weeks and still has the shortness of breath and lower extremity edema. He reports that his weight was 188 lb before he was started on the steroids. He is 196 lb today. He denies any fevers, chills, dizziness, headaches, changes in vision, cough, chest pain, palpitations, nausea/vomiting/diarrhea/constipation, abdominal pain, back pain or any other symptoms complaints or concerns at this time. MD Complaint: extremity pain and extremity swelling Onset (ago): week(s) (Four weeks) Pain Consistency: constant Location: left, right and lower extremity Quality: aching and constant Radiation: none Relieving factors: nothing Exacerbating factors: nothing Associated symptoms: shortness of breath Context: other (Recent steroid usage) Related Data Home Medications Medication Instructions Recorded Confirmed apixaban 5 mg tablet (Eliquis) 5 mg PO BID 06/15/20 02/19/21 atorvastatin 40 mg tablet 40 mg PO BEDTIME tab 06/15/20 02/19/21 cholecalciferol (vitamin D3) 50 50 mcg PO DAILY 06/15/20 02/19/21 mcg (2,000 unit) capsule colchicine 0.6 mg tablet 0.6 mg PO TID PRN 06/15/20 02/19/21 levothyroxine 25 mcg tablet 25 mcg PO DAILY 06/15/20 02/19/21 pyridostigmine bromide 60 mg tablet 60 mg PO TID 06/15/20 02/19/21 tamsulosin 0.4 mg capsule 0.4 mg PO BEDTIME 06/15/20 02/19/21 prednisone 20 mg tablet 10 mg PO DAILY 01/12/21 02/19/21 artificial tears(hypromellose) 0.3 1 drp OPHTHALMIC-LEFT BEDTIME PRN 01/22/21 02/19/21 % eye drops valsartan 320 1 tab PO DAILY 02/01/21 02/19/21 mg-hydrochlorothiazide 12.5 mg tablet Previous Rx's Medication Instructions Recorded metoprolol tartrate 25 mg tablet 12.5 mg PO BID #90 tab 11/12/20 omeprazole 20 mg capsule,delayed 20 mg PO DAILY@0630 #30 cap 01/24/21 release comp.stocking,thigh,long,large #2 ea 03/19/21 furosemide 40 mg tablet (Lasix) 40 mg PO DAILY 7 Days #7 tab 03/19/21 Allergies Allergy/AdvReac Type Severity Reaction Status Date / Time No Known Allergies Allergy Verified 02/19/21 14:29 Review of Systems Review of Systems: Constitutional : Positive weight gain over the past month and a half, No Weight loss, No Fever, No Chills, No Night Sweats, No Fatigue, No Malaise ENT/Mouth : No Hearing loss, No Ear Pain, No Nasal Congestion, No Sinus Pain, No Hoarseness, No sore throat, No Rhinorrhea, No Swallowing Difficulty Eyes: No Eye Pain, No Swelling, No Redness, No Foreign Body, No Discharge, No Vision Changes Cardiovascular : Positive shortness of breath, positive bilateral lower extremity edema, No Chest Pain, No SOB, No Dyspnea on Exertion, No Orthopnea, No Palpitations Respiratory : No Cough, No Sputum, No Wheezing, No Smoke Exposure, No Dyspnea Gastrointestinal : No Nausea, No Vomiting, No Diarrhea, No Constipation, No abdominal Pain, No Hematochezia, No Melena Genitourinary : no irregular bleeding, No Dysuria, No Urinary Frequency, No Hematuria, No Urinary Incontinence, No Urgency, No Flank Pain, No Urinary Flow Changes, No Hesitancy Musculoskeletal : Positive bilateral lower extremity joint pain/swelling, No Myalgias Skin : No Skin Lesions, No rash Neuro : No Weakness, No Numbness, No Paresthesias, No Loss of Consciousness, No Dizziness, No Headache Psych : No Anxiety/Panic, No Depression, No SI/HI/AH/VH, No Social Issues, Heme/Lymph: No Bruising, No Bleeding,No Lymphadenopathy Endocrine : No Polyuria, No Polydipsia, No Temperature Intolerance Yes all other systems are reviewed and are negative [facility] Past Medical History Attestation statement: The following information was validated with the patient. Medical History Arthritis Atherosclerotic cardiovascular disease Atrial flutter Back pain CHF (congestive heart failure) COVID-19 vaccine series completed CVA (cerebral vascular accident) Elevated cholesterol Essential hypertension Gout Hx of hypercalcemia Myasthenia gravis Ocular myasthenia gravis On anticoagulant therapy On beta loly at home Syncope Thyroid disease Typical atrial flutter Surgical History H/O carotid endarterectomy History of blepharoplasty History of cardiac catheterization (~02/15/18) History of cardiac pacemaker (~04/13/18) History of laparoscopic cholecystectomy History of left cataract surgery Hx of colonoscopy Family History Family History Father No problems noted. Mother No problems noted. Social History Social History Household Members: Spouse Housing: House Are you a primary dialysis patient care technician to a significant other at home: No Do you presently have visiting nurse or other home services: No Alcohol intake: never Patient Tobacco Use Status: Former Tobacco user Tobacco use type: Cigarette Smoked in Last 30 Days: No Use of substances other than those prescribed or required for medical reasons: No Advance Directives: No Advance Directives Information Provided: No service: Yes Current occupational status: retired Physical Exam Vital Signs: Vital Signs: Last Vital Signs Temp 96.4 F L 03/19/21 14:06 Pulse 70 03/19/21 18:13 Resp 17 03/19/21 18:13 BP 146/72 H 03/19/21 18:13 Pulse Ox 94 03/19/21 18:13 Body Mass Index 31.6 vital signs have been reviewed as normal and appeared to be correct. Blood pressure hypertensive 141/69 Heart rate normal. Respiration rate normal. Temperature normal. Oxygen saturation normal. Appearance: Alert. Oriented X3. No acute distress. Head: Normal external exam. Normocephalic. Atraumatic. Eyes: PERRLA. EOMI. Conjunctiva and sclera normal. Eyelids normal. ENT: Pharynx normal. Uvula midline. Moist mucous membranes. Neck: Normal inspection. Neck supple. FROM. No adenopathy. Thyroid Normal. No meningeal signs. No neck mass noted. CVS: Normal heart rate and rhythm. Heart sound normal. Pulses normal throughout. No murmurs/rales/gallops. Respiratory: No respiratory distress. Painless inspiration. Breath sounds normal. No wheezes/rales/rhonchi noted. Chest nontender. No accessory muscle usage noted or decreased air movement noted. Back: Full range of motion noted. No rashes/lesion/induration/fluctuance or signs of infection noted. Skin: Skin warm and dry. Normal skin color. Normal skin turgor. No rashes/lesions/lacerations noted. Extremities: Positive bilateral edema with Bilateral calf tenderness in the legs feel firm. No surrounding erythema/streaking/fluctuance or signs of infection noted. Otherwise all other Extremities exhibit normal range of motion and nontender. Neuro: Oriented X 3. No motor deficit. No sensory deficit. Reflexes normal. Normal steady gait. No focal neuro deficits noted. Vascular: + radial pulses/+ 2 distal pedal pulses/+2 dorsalis pedis b/l. Normal cap refill. No cyanosis noted to upper extremity nails and lower extremity toes nails. Course Course Course Narrative: 16:21pm - 75-year-old male who is being treated by Ophthalmology with steroids for approximately 4-6 weeks for ocular myasthenia presenting to the ED with complaints of 4 weeks of shortness of breath with bilateral lower extremity edema/calf tenderness despite not being on the steroids for 4 weeks. Associated weight gain from 188 lb to 196 lb today. Plan: Labs, chest x-ray, EKG, venous duplex ultrasound of lower extremity then re-evaluate. Reevaluation(s) Reevaluation #1: - patient with a mild baseline anemia similar compared to prior. Creatinine 1.42 patient has intermittent episodes of elevated creatinine. Total bilirubin 1.4. Alkaline phosphate 121. 114. Troponin 7.5. Otherwise all other labs are within normal limits. - EKG is atrial paced rhythm with ventricular rate of 60 with a normal AR interval normal QRS duration normal QT/QTC interval. No acute ischemic changes are noted. - Minimal atelectatic changes right lung base there is a 1 cm nodule right CP angle otherwise no acute processes are noted. - still awaiting ultrasound of bilateral lower extremity to evaluate for possible DVT. - although I believe patient has edema from the steroids therefore if ultrasound of bilateral lower extremities are negative and repeat troponin is negative delta patient will be given a short course of Lasix and instructed to follow up with primary care provider. Will give 40 mg of Lasix at this time. Will re- evaluate. Time: 18:37 Reevaluation #2: - repeat troponin negative delta. Ultrasound of bilateral lower extremities negative for any DVTs or any other acute processes. Therefore patient with most likely pedal edema from steroid usage. Will DC home with a short course of hydrochlorothiazide and instructions to return if any new or worsening symptoms to follow up with primary care provider. Patient understands agrees with this plan. Time: 20:59 Discharge Plan Discharge Clinical Impression: Pedal edema, Incidental pulmonary nodule Patient Disposition: Home, Self-Care Instructions: Pulmonary Nodules (ED), Edema (ED), Needle Biopsy of the Lung (DC) Prescriptions: New furosemide [Lasix] 40 mg tablet 40 mg PO DAILY 7 Days Qty: 7 RF: 0 (DME) comp.stocking,thigh,long,large Misc See Rx Instructions .Route Qty: 2 RF: 0 No Action metoprolol tartrate 25 mg tablet 12.5 mg PO BID Qty: 90 RF: 3 artificial tears(hypromellose) 0.3 % Drops 1 drp OPHTHALMIC-LEFT BEDTIME PRN (Reason: Dry Eye(S)) RF: 0 omeprazole 20 mg Capsule,Delayed Release(Dr/Ec) 20 mg PO DAILY@0630 Qty: 30 RF: 0 prednisone 20 mg tablet 10 mg PO DAILY RF: 0 valsartan-hydrochlorothiazide 320-12.5 mg tablet 1 tab PO DAILY RF: 0 atorvastatin 40 mg tablet 40 mg PO BEDTIME RF: 0 levothyroxine 25 mcg tablet 25 mcg PO DAILY RF: 0 pyridostigmine bromide 60 mg tablet 60 mg PO TID RF: 0 tamsulosin 0.4 mg capsule 0.4 mg PO BEDTIME RF: 0 Eliquis 5 mg tablet 5 mg PO BID RF: 0 colchicine 0.6 mg tablet 0.6 mg PO TID PRN (Reason: GOUT) RF: 0 cholecalciferol (vitamin D3) 50 mcg (2,000 unit) capsule 50 mcg PO DAILY RF: 0 Referrals: Mehran Pagan MD [Primary Care Provider] - 2 days Print Language: Greek
[2021-03-19 18:05] LABS: Glucose Urine UA NEG (NEG); Leukocyte Esterase Urine NEG (NEG); Nitrite Urine NEG (NEG); Specific Gravity - Urine <= 1.005 (1.005-1.025); UACC Culture Trigger NO; Urine Blood 2+ (NEG); Urine Ketones NEG (NEG); Urine Protein NEG (NEG-TRACE)
[2021-03-19 18:06] LABS: Appearance Urine CLEAR; Color Urine YELLOW
[2021-03-19 18:13] VITALS: BP 146/72; PULSE 70; RESP 17; O2SAT 94
[2021-03-19 18:14] LABS: Bacteria Urine TRACE /LPF; WBC Urine 0 /HPF (0-4)
[2021-03-19] MEDS: Furosemide 40 MG/4 ML VIAL IVPUSH (18:35)
--- NOTE | 2021-03-19 19:05 | PC.NURSE ---
assumed care of pt. pt resting in stretcher watching tv. pt denies any complaints. Emptied 200ml from urinal. with pt at bedside. will continue to monitor pt.
--- NOTE | 2021-03-19 20:02 | PC.NURSE ---
repeat labs drawn to lab.
== END 2021-03-19 21:27 | disposition home or self-care (01) ==
PROVIDERS: Physician Assistant Medical; Emergency Provider Internal Medicine; PCP Internal Medicine
DX: R60.0 Localized edema (principal); R06.02 Shortness of breath; R91.8 Other nonspecific abnormal finding of lung field; R91.1 Solitary pulmonary nodule; I11.0 Hypertensive heart disease with heart failure; I50.9 Heart failure, unspecified; E78.5 Hyperlipidemia, unspecified; I25.10 Atherosclerotic heart disease of native coronary artery without angina pectoris; Z86.73 Personal history of transient ischemic attack (TIA), and cerebral infarction without residual deficits; Z79.02 Long term (current) use of antithrombotics/antiplatelets; Z79.01 Long term (current) use of anticoagulants; Z95.0 Presence of cardiac pacemaker
CPT/HCPCS: 36415; 71045; 80053; 81001; 83735; 83880; 84484; 85025; 85610; 93005; 93970; 96374; 99284; 99285; J1940

== ENCOUNTER 2021-03-30 10:13 | Outpatient (REF) | payer MEDICARE, OTHER, SELFPAY ==
--- NOTE | ~2021-03-30 | CT_ITS ---
EXAMINATION: CT CHEST WITHOUT CONTRAST CLINICAL INFORMATION: Pulmonary nodule follow-up. COMPARISON: CTA chest 01/22/2021.. Chest x-ray 03/19/2021 TECHNIQUE: Multidetector volumetric CT imaging of the chest was done. Axial MIP volume rendering provided. Sagittal and coronal reformatted images were obtained. This CT examination was performed using dose optimization techniques as appropriate, variously including the following: *Automated exposure control *Adjustment of mA and/or kV according to patient size (this includes techniques or standardized protocols for targeted exams where dose is matched to indication/reason for exam; i.e. extremities or head) *Use of iterative reconstruction technique DLP: 307 mGy-cm FINDINGS: PANELBOARD OPERATOR: The lungs are well-expanded with mild blunting of right CP angle. LUNGS: The lungs are well-expanded and clear of acute pneumonic process. There is bandlike atelectasis right middle lobe and right lower lobe. Recently described nodule in the right CP angle on chest x-rays nodular. There is mild bronchiectasis both lower lobes. No peribronchial thickening or groundglass density seen. MEDIASTINUM: There are coronary artery and aortic arch calcifications. The thoracic aorta, aortic arch and the heart size are within normal limits. There are pacer electrodes in the right atrium and right ventricle. No pericardial effusion seen. No abnormal size mediastinal or hilar lymph nodes. There are small shotty subcarinal lymph nodes likely benign. There is elevated right hemidiaphragm. PLEURA: There is no pleural effusion. No pleural mass or thickening. AXILLA: No abnormal examination lymph nodes seen. The chest wall is unremarkable. UPPER ABDOMEN: . Visualized liver, spleen, pancreas and bilateral adrenal glands are unremarkable. There is a nonobstructive 4 no radiopaque calculi upper pole right kidney. OSSEOUS STRUCTURES: There is a compression fracture deformity T5 vertebra likely acute. There are compression deformities of T4 and T11 vertebra with a moderate size Schmorl's node likely old. CT/CT chest wo con IMPRESSION: No pulmonary nodules seen in the right lower lobe as was visualized on the recent chest x-ray. It was likely an artifact. There is however a right lower lobe and right middle lobe atelectasis with mild elevated right hemidiaphragm. Minimal bronchiectasis in both lower lobes.
== END 2021-03-30 10:14 | disposition home or self-care (01) ==
LOC: HO.CT 10:13
PROVIDERS: Visit Provider Internal Medicine
DX: R91.1 Solitary pulmonary nodule (principal)
CPT/HCPCS: 71250

== ENCOUNTER 2021-04-01 09:37 | Outpatient (REF) | payer MEDICARE, OTHER, SELFPAY ==
--- NOTE | ~2021-04-01 | MR_ITS ---
EXAMINATION: MR THORACIC SPINE WITHOUT AND WITH CONTRAST CLINICAL INFORMATION: Abnormal bone scan. COMPARISON: Nuclear medicine bone scan 03/08/2021. TECHNIQUE: MRI of the thoracic spine was obtained using routine sequences without and with contrast. A total of 9 mL Gadavist was intravenously administered. FINDINGS: Acute edematous compression fracture is seen at T5 with 35% height loss. Milder edematous superior endplate compression fracture is seen at T6. A chronic compression fracture is seen at T4. There is a chronic appearing compression fracture at T11 with depression of the superior and inferior endplates. A mild amount of marrow edema and associated enhancement is seen about the superior aspect of the fracture which may represent incomplete healing. There is minimal degree of retropulsion at T11. The thoracic alignment appears preserved. Mild multilevel disc height loss is noted. There is no thoracic cord signal abnormality or evidence of cord compression. There is enhancement within the T2 vertebral body which may be on the basis of a hemangioma. A peripherally enhancing perineural cyst is seen on the left at T10-T11. Disc bulges and small disc herniations are noted but none of which results in significant narrowing of the spinal canal. At C7-T1 there is mild spinal canal stenosis related to disc bulging. Lower cervical spondylosis is also present including narrowing of the neural foramina at C5-C6, C6-C7, and C7-T1. There is no significant narrowing of the thoracic neural foramina. The extraspinal soft tissues are within normal limits. MR/MR thoracic spine wo/w con IMPRESSION: Acute edematous compression fracture seen at T5 with 35% height loss with additional acute edematous fracture also seen at T6 with only mild height loss. A chronic appearing compression fracture seen at T4 without associated marrow edema. A chronic appearing fractures seen at T11 with mild edema seen superiorly which may represent incomplete healing. No significant narrowing of the spinal canal.
== END 2021-04-01 09:38 | disposition home or self-care (01) ==
LOC: HO.MRI 09:37
PROVIDERS: PCP Internal Medicine; Visit Provider Internal Medicine
DX: R93.7 Abnormal findings on diagnostic imaging of other parts of musculoskeletal system (principal)
CPT/HCPCS: 72157; A9585

== ENCOUNTER → 2021-05-05 12:19 | Outpatient (BNVA) | payer MEDICARE, OTHER, SELFPAY | PROVIDERS: PCP Internal Medicine; Referring Provider Internal Medicine; Visit Provider Internal Medicine | DX: I25.10 Atherosclerotic heart disease of native coronary artery without angina pectoris (principal); I48.3 Typical atrial flutter; I10 Essential (primary) hypertension; R60.0 Localized edema | CPT/HCPCS: 99212 ==

== ENCOUNTER 2021-06-08 06:04 | Outpatient (REF) | payer MEDICARE, SELFPAY ==
[2021-06-08 06:21] LABS: MANUAL DIFF FLAG NO
[2021-06-08 07:16] LABS: Basophils Percent Auto 0.2 % (0-2); Eosinophils Absolute Auto 0.1 X10*3/uL (0.0-0.4); Eosinophils Percent Auto 2.3 % (0-4); Hematocrit 32.5 % (42-52); Hemoglobin 10.4 g/dl (14.0-18.0); Imm Gran Abs Auto 0.01 X10*3/uL (0.00-0.03); Imm Gran Pct Auto 0.2 % (0.0-0.4); Lymphocytes Absolute Auto 1.4 X10*3/uL (1.2-4.9); Lymphocytes Percent Auto 24.6 % (20-40); Mean Corpuscular Hemoglobin 28.4 pg (27.0-33.0); Mean Corpuscular Volume 88.8 fL (80-98); Mean Platelet Volume 10.2 fL (9.4-12.4); Monocytes Absolute Auto 0.7 X10*3/uL (0.1-1.2); Monocytes Percent Auto 11.8 % (2-11); Neutrophils Absolute Auto 3.5 X10*3/uL (2.0-8.3); Neutrophils Percent Auto 60.9 % (45-73); Platelet Count 204 X10*3/uL (160-400); Red Blood Count 3.66 X10*6/uL (4.60-5.80); Red Cell Distribution Width 15.8 % (11.0-16.0); White Blood Count 5.7 X10*3/uL (4.8-10.8)
[2021-06-08 07:46] LABS: Alanine Aminotransferase 18 U/L (0-40); Albumin Level 4.2 g/dL (3.5-5.0); Alkaline Phosphatase 112 U/L (39-117); Anion Gap 11 (12-20); Aspartate Amino Transferase 22 U/L (5-37); Bilirubin Total 1.8 mg/dL (0.0-1.0); Blood Urea Nitrogen 14 mg/dL (9-16); Calcium 10.2 mg/dL (8.4-10.2); Carbon Dioxide 28 mmol/L (22-29); Chloride 105 mmol/L (96-108); Estimated Glomerular Filt Rate 49; Glucose Random 104 mg/dL (60-115); Sodium 140 mmol/L (135-145); Total Protein 6.5 g/dL (6.5-8.0)
[2021-06-08 07:57] LABS: Thyroid Stimulating Hormone 1.58 uIU/mL (0.32-4.0); Vitamin D 25-OH Total 29.3 ng/mL (>30)
[2021-06-10 15:37] LABS: PTHI 227 pg/mL (14-64)
[2021-06-11 22:07] LABS: Prot Elec - Albumin 3.9 g/dL (3.8-4.8); Prot Elec - Alpha1 0.3 g/dL (0.2-0.3); Prot Elec - Alpha2 0.5 g/dL (0.5-0.9); Prot Elec - Beta 1 0.5 g/dL (0.4-0.6); Prot Elec - Beta 2 0.4 g/dL (0.2-0.5); Prot Elec - Gamma 0.8 g/dL (0.8-1.7); Prot Elec - Total Protein 6.4 g/dL (6.1-8.1)
[2021-06-13 15:46] LABS: Testosterone, Free 53.9 pg/mL (30.0-135.0); Testosterone, Total 374 ng/dL (250-1100)
== END 2021-06-08 06:05 | disposition home or self-care (01) ==
LOC: HO.LAB 06:04
PROVIDERS: PCP Internal Medicine; Visit Provider Internal Medicine Endocrinology, Diabetes & Metabolism
DX: M80.00XA Age-related osteoporosis with current pathological fracture, unspecified site, initial encounter for fracture (principal)
CPT/HCPCS: 36415; 80053; 82306; 83970; 84165; 84402; 84403; 84443; 85025

== ENCOUNTER 2021-06-09 06:33 | Outpatient (REF) | payer MEDICARE, SELFPAY ==
--- NOTE | ~2021-06-09 | XR_ITS ---
EXAMINATION: XR SHOULDER, LEFT CLINICAL INFORMATION: Shoulder pain COMPARISON: None TECHNIQUE: Three views of the left shoulder. FINDINGS: Mild acromioclavicular arthritis. No fracture or dislocation. Glenohumeral joint space is maintained. Left pectoral pacemaker. XR/XR shoulder LT min 2V IMPRESSION: Mild acromioclavicular arthritis.
== END 2021-06-09 06:34 | disposition home or self-care (01) ==
LOC: HO.HOSX 06:33
PROVIDERS: Visit Provider Physician Assistant
DX: S46.212A Strain of muscle, fascia and tendon of other parts of biceps, left arm, initial encounter (principal)
CPT/HCPCS: 73030; 99202

== ENCOUNTER 2021-06-11 07:18 | Outpatient (REF) | payer MEDICARE, SELFPAY ==
[2021-06-11 08:09] LABS: Total Volume 24 Hour Urine 1550 mL
[2021-06-11 08:33] LABS: Creatinine, 24Hr Urine 1.2 G/Day (1.0-2.0); Creatinine, mg/dL 74.75
[2021-06-14 16:46] LABS: Calcium, 24 Hr Urine 175 mg/24 h; Calcium/Creatinine Ratio 149 mg/g creat (30-210); Creatinine 24Hr Urine 1.18 g/24 h (0.50-2.15)
[2021-06-16 10:31] LABS: N-Telopeptide 119 (see note); NTXCreaRU 91 mg/dL (20-320)
== END 2021-06-11 07:19 | disposition home or self-care (01) ==
LOC: HO.LNP 07:18
PROVIDERS: Visit Provider Internal Medicine Endocrinology, Diabetes & Metabolism
DX: M80.00XA Age-related osteoporosis with current pathological fracture, unspecified site, initial encounter for fracture (principal)
CPT/HCPCS: 82340; 82523; 82570

== ENCOUNTER → 2021-06-14 12:57 | Outpatient (BNVA) | payer MEDICARE, SELFPAY | PROVIDERS: PCP Internal Medicine; Referring Provider Internal Medicine; Visit Provider Internal Medicine | DX: Z45.018 Encounter for adjustment and management of other part of cardiac pacemaker (principal); I25.10 Atherosclerotic heart disease of native coronary artery without angina pectoris; I48.3 Typical atrial flutter; I10 Essential (primary) hypertension; R60.0 Localized edema | CPT/HCPCS: 99212 ==

== ENCOUNTER 2021-07-20 10:37 | Outpatient (REF) | payer MEDICARE, SELFPAY ==
[2021-07-20 10:41] LABS: MANUAL DIFF FLAG NO
[2021-07-20 10:54] LABS: Basophils Percent Auto 0.3 % (0-2); Eosinophils Absolute Auto 0.1 X10*3/uL (0.0-0.4); Eosinophils Percent Auto 1.9 % (0-4); Hematocrit 31.2 % (42.0-52.0); Hemoglobin 9.7 g/dl (14.0-18.0); Imm Gran Abs Auto 0.01 X10*3/uL (0.00-0.03); Imm Gran Pct Auto 0.2 % (0.0-0.4); Lymphocytes Percent Auto 31.7 % (20-40); Mean Corpuscular HGB Conc 31.1 g/dl (31.0-36.0); Mean Corpuscular Hemoglobin 27.7 pg (27.0-33.0); Mean Corpuscular Volume 89.1 fL (80.0-98.0); Mean Platelet Volume 10.2 fL (9.4-12.4); Monocytes Absolute Auto 0.8 X10*3/uL (0.1-1.2); Monocytes Percent Auto 13.1 % (2-11); Neutrophils Absolute Auto 3.3 x10*3/uL (2.0-8.3); Neutrophils Percent Auto 52.8 % (45-73); Platelet Count 182 X10*3/uL (160-400); Red Cell Distribution Width 14.4 % (11.0-16.0); White Blood Count 6.2 X10*3/uL (4.8-10.8)
[2021-07-20 11:01] LABS: Estimated Average Glucose 114 mg/dL; Hemoglobin A1c % 5.6 %
[2021-07-20 11:03] LABS: Appearance Urine CLEAR; Color Urine YELLOW; Glucose Urine UA NEG (NEG); Leukocyte Esterase Urine NEG (NEG); Nitrite Urine NEG (NEG); PH 7.5 (5.0-8.0); Specific Gravity - Urine 1.015 (1.005-1.025); Urine Blood TRACE (NEG); Urine Ketones NEG (NEG); Urine Protein NEG (NEG-TRACE)
[2021-07-20 11:22] LABS: Alanine Aminotransferase 40 U/L (0-40); Albumin Level 4.1 g/dL (3.5-5.0); Alkaline Phosphatase 108 U/L (39-117); Anion Gap 11 (12-20); Aspartate Amino Transferase 29 U/L (5-37); Blood Urea Nitrogen 16 mg/dL (9-16); Calcium 10.1 mg/dL (8.4-10.2); Carbon Dioxide 26 mmol/L (22-29); Chloride 105 mmol/L (96-108); Cholesterol 93 mg/dL; Estimated Glomerular Filt Rate 52; Glucose Fasting 96 mg/dL (60-99); HDL Cholesterol 30 mg/dL; LDL Cholesterol Calculated 45 mg/dl; Potassium 4.4 mmol/L (3.3-5.1); Sodium 138 mmol/L (135-145); Total Protein 6.3 g/dL (6.5-8.0); Triglycerides 92 mg/dL
[2021-07-20 11:23] LABS: WBC Urine 0 /HPF (0-4)
[2021-07-20 11:30] LABS: Creatinine Urine 75.65 mg/dL; Microalbum/Creatinine Ratio Ur 19.8 ug/mg cr
[2021-07-20 11:45] LABS: PSA,Total (Free>4and<10) 3.47 ng/mL (0.00-4.00); TSH reflex Free T4 1.96 uIU/mL (0.32-4.0)
== END 2021-07-20 10:38 | disposition home or self-care (01) ==
LOC: HO.LNP 10:37
PROVIDERS: PCP Internal Medicine; Visit Provider Internal Medicine
DX: Z00.00 Encounter for general adult medical examination without abnormal findings (principal); Z12.5 Encounter for screening for malignant neoplasm of prostate; E03.9 Hypothyroidism, unspecified; R73.03 Prediabetes; I10 Essential (primary) hypertension; N40.0 Benign prostatic hyperplasia without lower urinary tract symptoms; E78.00 Pure hypercholesterolemia, unspecified; R79.89 Other specified abnormal findings of blood chemistry; E21.3 Hyperparathyroidism, unspecified
CPT/HCPCS: 80053; 80061; 81001; 81003; 82043; 83036; 84153; 84443; 85025

== ENCOUNTER 2021-08-31 11:05 | Outpatient (REF) | payer MEDICARE, SELFPAY ==
[2021-08-31 11:31] LABS: Appearance Urine CLEAR; Color Urine YELLOW; Glucose Urine UA NEG (NEG); Leukocyte Esterase Urine NEG (NEG); Nitrite Urine NEG (NEG); PH 6.5 (5.0-8.0); Urine Blood NEG (NEG); Urine Ketones NEG (NEG); Urine Protein NEG (NEG-TRACE)
[2021-08-31 11:56] LABS: Amorphous Sediment Urine 1+ /LPF; RBC Urine 0-2 /HPF (0); WBC Urine 0-2 /HPF (0-4)
== END 2021-08-31 11:06 | disposition home or self-care (01) ==
LOC: HO.LNP 11:05
PROVIDERS: Visit Provider Internal Medicine
DX: R31.1 Benign essential microscopic hematuria (principal)
CPT/HCPCS: 81001

== ENCOUNTER → 2021-12-13 12:21 | Outpatient (BNVA) | payer MEDICARE, SELFPAY | PROVIDERS: PCP Internal Medicine; Referring Provider Internal Medicine; Visit Provider Internal Medicine | DX: Z01.810 Encounter for preprocedural cardiovascular examination (principal); Z45.018 Encounter for adjustment and management of other part of cardiac pacemaker; I25.10 Atherosclerotic heart disease of native coronary artery without angina pectoris; I48.3 Typical atrial flutter; I10 Essential (primary) hypertension; R60.0 Localized edema | CPT/HCPCS: 93005; 93280; 99212 ==

== ENCOUNTER 2021-12-17 15:30 | Outpatient (REF) | payer MEDICARE, SELFPAY ==
[2021-12-17 15:32] LABS: MANUAL DIFF FLAG NO
[2021-12-17 15:35] LABS: Basophils Percent Auto 0.1 % (0-2); Eosinophils Absolute Auto 0.1 X10*3/uL (0.0-0.4); Hematocrit 39.8 % (42.0-52.0); Hemoglobin 13.1 g/dl (14.0-18.0); Imm Gran Abs Auto 0.01 X10*3/uL (0.00-0.03); Imm Gran Pct Auto 0.1 % (0.0-0.4); Lymphocytes Absolute Auto 2.4 X10*3/uL (1.2-4.9); Lymphocytes Percent Auto 33.2 % (20-40); Mean Corpuscular HGB Conc 32.9 g/dl (31.0-36.0); Mean Corpuscular Hemoglobin 30.3 pg (27.0-33.0); Mean Corpuscular Volume 91.9 fL (80.0-98.0); Mean Platelet Volume 10.6 fL (9.4-12.4); Monocytes Absolute Auto 1.1 X10*3/uL (0.1-1.2); Monocytes Percent Auto 14.7 % (2-11); Neutrophils Absolute Auto 3.7 x10*3/uL (2.0-8.3); Neutrophils Percent Auto 50.9 % (45-73); Platelet Count 157 X10*3/uL (160-400); Red Blood Count 4.33 X10*6/uL (4.60-5.80); Red Cell Distribution Width 17.1 % (11.0-16.0); White Blood Count 7.3 X10*3/uL (4.8-10.8)
[2021-12-17 15:53] LABS: Alanine Aminotransferase 22 U/L (0-40); Albumin Level 4.1 g/dL (3.5-5.0); Alkaline Phosphatase 110 U/L (39-117); Anion Gap 10 (12-20); Aspartate Amino Transferase 21 U/L (5-37); Bilirubin Total 1.8 mg/dL (0.0-1.0); Blood Urea Nitrogen 20 mg/dL (9-16); Calcium 10.5 mg/dL (8.4-10.2); Carbon Dioxide 28 mmol/L (22-29); Chloride 107 mmol/L (96-108); Estimated Glomerular Filt Rate 49; Glucose Random 89 mg/dL (60-115); Potassium 4.4 mmol/L (3.3-5.1); Sodium 141 mmol/L (135-145); Total Protein 6.4 g/dL (6.5-8.0)
== END 2021-12-17 15:31 | disposition home or self-care (01) ==
LOC: HO.LNP 15:30
PROVIDERS: Visit Provider Internal Medicine
DX: Z01.818 Encounter for other preprocedural examination (principal)
CPT/HCPCS: 80053; 85025

== ENCOUNTER 2022-01-04 10:44 | Outpatient (REF) | payer MEDICARE, SELFPAY ==
[2022-01-04 11:24] LABS: Estimated Average Glucose 117 mg/dL; Hemoglobin A1c % 5.7 %
[2022-01-04 11:35] LABS: Alanine Aminotransferase 26 U/L (0-40); Albumin Level 4.2 g/dL (3.5-5.0); Alkaline Phosphatase 111 U/L (39-117); Aspartate Amino Transferase 23 U/L (5-37); Bilirubin Direct 0.7 mg/dL (0.0-0.5); Bilirubin Total 2.1 mg/dL (0.0-1.0); Cholesterol 97 mg/dL; Glucose Fasting 99 mg/dL (60-99); HDL Cholesterol 28 mg/dL; LDL Cholesterol Calculated 50 mg/dl; Total Protein 6.3 g/dL (6.5-8.0); Triglycerides 98 mg/dL
[2022-01-04 14:21] LABS: Reflex LDLD? No
== END 2022-01-04 10:45 | disposition home or self-care (01) ==
LOC: HO.LNP 10:44
PROVIDERS: Visit Provider Internal Medicine
DX: R73.03 Prediabetes (principal); E78.00 Pure hypercholesterolemia, unspecified
CPT/HCPCS: 80061; 80076; 82947; 83036

== ENCOUNTER 2022-01-19 05:48 | Outpatient (REF) | payer MEDICARE, SELFPAY ==
[2022-01-19 07:35] LABS: Albumin Level 4.1 g/dL (3.5-5.0); Calcium 8.3 mg/dL (8.4-10.2)
== END 2022-01-19 05:49 | disposition home or self-care (01) ==
LOC: HO.LAB 05:48
PROVIDERS: PCP Internal Medicine; Visit Provider Student in an Organized Health Care Education/Training Program
DX: E21.3 Hyperparathyroidism, unspecified (principal)
CPT/HCPCS: 36415; 82040; 82310

== ENCOUNTER 2022-01-27 06:03 | Outpatient (REF) | payer MEDICARE, SELFPAY ==
[2022-01-27 07:45] LABS: Albumin Level 4.1 g/dL (3.5-5.0); Calcium 7.7 mg/dL (8.4-10.2)
== END 2022-01-27 06:04 | disposition home or self-care (01) ==
LOC: HO.LAB 06:03
PROVIDERS: PCP Internal Medicine; Visit Provider Surgery
DX: E89.0 Postprocedural hypothyroidism (principal)
CPT/HCPCS: 36415; 82040; 82310

== ENCOUNTER 2022-01-28 07:49 | Outpatient (REF) | payer MEDICARE, SELFPAY ==
--- NOTE | ~2022-01-28 | MM_ITS ---
EXAMINATION: BONE DENSITOMETRY CLINICAL INDICATION: Osteoporosis. COMPARISON: This is the patient's baseline examination. TECHNIQUE: Using a [employer] DXA System (software version: 13.1) manufactured by [employer], dual-energy x-ray absorptiometry was performed of the lumbar spine, left hip, and left forearm radius 33%. The images are of good technical quality. Summary results are attached. FINDINGS: AP SPINE L1-L4: BMD 1.056 g/cm2, Z-score -0.9, T-score -1.4, osteopenia. LEFT FEMUR, NECK: BMD 0.641 g/cm2, Z-score -2.0, T-score -3.3, osteoporosis. LEFT FEMUR, TOTAL: BMD 0.711 g/cm2, Z-score -1.8, T-score -2.7, osteoporosis. LEFT FOREARM RADIUS 33%: BMD 0.849 g/cm2, Z-score -0.3, T-score -1.4, osteopenia. IDENTIFIED RISK FACTORS: Height loss, hyperparathyroidism, low calcium intake, osteoporosis. HISTORY OF FRACTURE: None listed. MEDICATIONS: Calcium, vitamin D. MM/XR DEXA appendicular skeleton IMPRESSION: 1. DIAGNOSIS: Osteoporosis based on the lowest T-score value of -3.3 in the femoral neck applying World Health Organization criteria. 2. 10-YEAR FRACTURE RISK PREDICTION, FRAX: Major osteoporotic fracture (clinical spine, forearm, hip or shoulder) 13.7%. Hip fracture 6.7%. 3. Treatment Recommendations: NOF guidelines recommend consideration for treatment in postmenopausal women and men age 50 and older presenting with the following: -A hip or vertebral (clinical or morphometric) fracture. -T-score less than or equal to -2.5 at the femoral neck or spine after appropriate evaluation to exclude secondary causes. -Low bone mass at the hip or spine and a 10-year fracture probability by FRAX of greater than or equal to 3% for hip fracture or greater than or equal to 20% for major osteoporotic fracture based on the [place] adapted WHO algorithm. 4. Other Recommendations: All treatment decisions require clinical judgment and consideration of individual patient factors, including patient preferences, comorbidities, previous drug use, risk factors not captured in the FRAX model (e.g. frailty, falls, vitamin D deficiency, increased bone turnover, interval significant decline in bone density) and possible under or overestimation of fracture risk by FRAX. Additional medical evaluation for secondary cause of low bone mineral density may be appropriate. FUTURE SCAN RECOMMENDATION: People with diagnosed cases of osteoporosis or at high risk for fracture should have regular bone mineral density tests. For patients eligible for Medicare, routine testing is allowed once every 2 years. The testing frequency can be increased to one year for patients who have rapidly progressing disease, those who are receiving or discontinuing medical therapy to restore bone mass, or have additional risk factors.
== END 2022-01-28 07:50 | disposition home or self-care (01) ==
LOC: HO.MAMMO 07:49
PROVIDERS: PCP Internal Medicine Endocrinology, Diabetes & Metabolism; Visit Provider Internal Medicine Endocrinology, Diabetes & Metabolism
DX: Z13.820 Encounter for screening for osteoporosis (principal); M80.00XA Age-related osteoporosis with current pathological fracture, unspecified site, initial encounter for fracture
CPT/HCPCS: 77081

== ENCOUNTER 2022-02-02 06:02 | Outpatient (REF) | payer MEDICARE, SELFPAY ==
[2022-02-02 07:38] LABS: Albumin Level 4.1 g/dL (3.5-5.0); Calcium 7.8 mg/dL (8.4-10.2)
[2022-02-03 15:36] LABS: Calcium (PTHI) 7.7 mg/dL (8.6-10.3); PTHI 57 pg/mL (16-77)
== END 2022-02-02 06:03 | disposition home or self-care (01) ==
LOC: HO.LAB 06:02
PROVIDERS: PCP Internal Medicine; Visit Provider Surgery
DX: E89.0 Postprocedural hypothyroidism (principal)
CPT/HCPCS: 36415; 82040; 82310; 83970

== ENCOUNTER 2022-02-24 05:50 | Outpatient (REF) | payer MEDICARE, SELFPAY ==
[2022-02-24 07:33] LABS: Albumin Level 4.4 g/dL (3.5-5.0); Calcium 8.1 mg/dL (8.4-10.2)
== END 2022-02-24 05:51 | disposition home or self-care (01) ==
LOC: HO.LAB 05:50
PROVIDERS: PCP Internal Medicine; Visit Provider Surgery
DX: Z98.890 Other specified postprocedural states (principal)
CPT/HCPCS: 36415; 82040; 82310

== ENCOUNTER 2022-03-10 05:50 | Outpatient (REF) | payer MEDICARE, SELFPAY ==
[2022-03-10 07:23] LABS: Albumin Level 4.4 g/dL (3.5-5.0); Calcium 8.5 mg/dL (8.4-10.2)
== END 2022-03-10 05:51 | disposition home or self-care (01) ==
LOC: HO.LAB 05:50
PROVIDERS: PCP Internal Medicine; Visit Provider Surgery
DX: Z98.890 Other specified postprocedural states (principal)
CPT/HCPCS: 36415; 82040; 82310

== ENCOUNTER 2022-03-24 05:56 | Outpatient (REF) | payer MEDICARE, SELFPAY ==
[2022-03-24 07:51] LABS: Albumin Level 4.4 g/dL (3.5-5.0); Calcium 8.9 mg/dL (8.4-10.2)
== END 2022-03-24 05:57 | disposition home or self-care (01) ==
LOC: HO.LAB 05:56
PROVIDERS: PCP Internal Medicine; Visit Provider Surgery
DX: E89.2 Postprocedural hypoparathyroidism (principal)
CPT/HCPCS: 36415; 82040; 82310

== ENCOUNTER 2022-04-14 05:50 | Outpatient (REF) | payer MEDICARE, SELFPAY ==
[2022-04-14 07:30] LABS: Albumin Level 4.2 g/dL (3.5-5.0); Calcium 8.6 mg/dL (8.4-10.2)
== END 2022-04-14 05:51 | disposition home or self-care (01) ==
LOC: HO.LAB 05:50
PROVIDERS: PCP Internal Medicine; Visit Provider Surgery
DX: Z98.890 Other specified postprocedural states (principal)
CPT/HCPCS: 36415; 82040; 82310

== ENCOUNTER 2022-04-28 05:56 | Outpatient (REF) | payer MEDICARE, SELFPAY ==
[2022-04-28 08:20] LABS: Albumin Level 4.3 g/dL (3.5-5.0); Calcium 8.9 mg/dL (8.4-10.2)
== END 2022-04-28 05:57 | disposition home or self-care (01) ==
LOC: HO.LAB 05:56
PROVIDERS: PCP Internal Medicine; Visit Provider Surgery
DX: Z98.890 Other specified postprocedural states (principal)
CPT/HCPCS: 36415; 82040; 82310

== ENCOUNTER 2022-05-12 05:54 | Outpatient (REF) | payer MEDICARE, SELFPAY ==
[2022-05-12 08:12] LABS: Albumin Level 4.1 g/dL (3.5-5.0); Calcium 9.1 mg/dL (8.4-10.2)
== END 2022-05-12 05:55 | disposition home or self-care (01) ==
LOC: HO.LAB 05:54
PROVIDERS: PCP Internal Medicine; Visit Provider Surgery
DX: Z98.890 Other specified postprocedural states (principal)
CPT/HCPCS: 36415; 82040; 82310

== ENCOUNTER → 2022-06-06 08:11 | Outpatient (BNVA) | payer MEDICARE, SELFPAY | PROVIDERS: PCP Internal Medicine; Referring Provider Internal Medicine; Visit Provider Internal Medicine | DX: I25.10 Atherosclerotic heart disease of native coronary artery without angina pectoris (principal); I48.3 Typical atrial flutter; I10 Essential (primary) hypertension | CPT/HCPCS: 99212 ==

== ENCOUNTER 2022-07-22 11:02 | Outpatient (REF) | payer MEDICARE, SELFPAY ==
[2022-07-22 11:08] LABS: MANUAL DIFF FLAG NO
[2022-07-22 12:46] LABS: Basophils Percent Auto 0.4 % (0-2); Eosinophils Absolute Auto 0.2 X10*3/uL (0.0-0.4); Eosinophils Percent Auto 2.2 % (0-4); Hematocrit 39.7 % (42.0-52.0); Hemoglobin 13.3 g/dl (14.0-18.0); Imm Gran Abs Auto 0.03 X10*3/uL (0.00-0.03); Imm Gran Pct Auto 0.4 % (0.0-0.4); Mean Corpuscular HGB Conc 33.5 g/dl (31.0-36.0); Mean Corpuscular Volume 98.5 fL (80.0-98.0); Mean Platelet Volume 9.9 fL (9.4-12.4); Monocytes Absolute Auto 1.1 X10*3/uL (0.1-1.2); Monocytes Percent Auto 14.7 % (2-11); Neutrophils Percent Auto 54.3 % (45-73); Platelet Count 174 X10*3/uL (160-400); Red Blood Count 4.03 X10*6/uL (4.60-5.80); Red Cell Distribution Width 12.7 % (11.0-16.0); White Blood Count 7.3 X10*3/uL (4.8-10.8)
[2022-07-22 13:13] LABS: Estimated Average Glucose 111 mg/dL; Hemoglobin A1c % 5.5 %
[2022-07-22 13:27] LABS: Appearance Urine Clear; Color Urine Yellow; Glucose Urine UA Negative (Negative); Leukocyte Esterase Urine Negative (Negative); Nitrite Urine Negative (Negative); Urine Blood Negative (Negative); Urine Ketones Negative (Negative); Urine Protein Negative (Neg-Trace)
[2022-07-22 13:28] LABS: Creatinine Urine 159.06 mg/dL; Microalbum/Creatinine Ratio Ur 6.9 ug/mg cr
[2022-07-22 13:33] LABS: Bacteria Urine None Seen (None Seen); Hyaline Casts Urine 0-2 /LPF (0-2); RBC Urine 0-2 /HPF (0-2); Squamous Epithelial Cell Urine 0-2 /HPF (0-2); WBC Urine 0-5 /HPF (0-5)
[2022-07-22 14:22] LABS: Alanine Aminotransferase 58 U/L (0-40); Albumin Level 4.2 g/dL (3.5-5.0); Alkaline Phosphatase 80 U/L (39-117); Anion Gap 12 (12-20); Aspartate Amino Transferase 33 U/L (5-37); Bilirubin Total 1.4 mg/dL (0.0-1.0); Blood Urea Nitrogen 22 mg/dL (9-16); Calcium 8.2 mg/dL (8.4-10.2); Carbon Dioxide 28 mmol/L (22-29); Chloride 99 mmol/L (96-108); Cholesterol 104 mg/dL; Estimated Glomerular Filt Rate 48; Glucose Fasting 88 mg/dL (60-99); HDL Cholesterol 32 mg/dL; LDL Cholesterol Calculated 54 mg/dl; PSA,Total (Free>4and<10) 10.02 ng/mL (0.00-4.00); Sodium 135 mmol/L (135-145); TSH reflex Free T4 1.72 uIU/mL (0.32-4.0); Total Protein 6.5 g/dL (6.5-8.0); Triglycerides 91 mg/dL
== END 2022-07-22 11:03 | disposition home or self-care (01) ==
LOC: HO.LNP 11:02
PROVIDERS: Visit Provider Internal Medicine
DX: Z00.00 Encounter for general adult medical examination without abnormal findings (principal); Z12.5 Encounter for screening for malignant neoplasm of prostate; E03.9 Hypothyroidism, unspecified; R73.03 Prediabetes; I10 Essential (primary) hypertension; N40.0 Benign prostatic hyperplasia without lower urinary tract symptoms; E78.00 Pure hypercholesterolemia, unspecified
CPT/HCPCS: 80053; 80061; 81001; 82043; 83036; 84153; 84443; 85025

== ENCOUNTER → 2023-01-09 12:26 | Outpatient (BNVA) | payer MEDICARE, SELFPAY | PROVIDERS: PCP Internal Medicine; Referring Provider Internal Medicine; Visit Provider Internal Medicine | DX: I25.10 Atherosclerotic heart disease of native coronary artery without angina pectoris (principal); I48.3 Typical atrial flutter; I10 Essential (primary) hypertension; Z79.899 Other long term (current) drug therapy; Z45.018 Encounter for adjustment and management of other part of cardiac pacemaker | CPT/HCPCS: 93005; 93280; 99212 ==

== ENCOUNTER 2023-01-23 10:31 | Outpatient (REF) | payer MEDICARE, SELFPAY ==
[2023-01-23 11:14] VITALS: BP 132/72; PULSE 67; RESP 16; TEMP 36.3; O2SAT 97
[2023-01-23 11:15] VITALS: BMI 33.1
== END 2023-01-23 10:32 | disposition home or self-care (01) ==
LOC: HO.MS 10:31
PROVIDERS: PCP Internal Medicine; Visit Provider Ophthalmology
PROC: (CPT 66821; principal; 2023-01-23 13:10)
DX: H26.492 Other secondary cataract, left eye (principal)
CPT/HCPCS: 66821

== ENCOUNTER → 2023-04-19 23:59 | Outpatient (BNV) | payer MEDICARE, SELFPAY ==
--- NOTE | 2023-04-20 15:59 | A.OFFVIS_ITS ---
Intake Intake Visit Reasons: Remote Device Check- [employer] Allergies No Known Allergies Allergy (Verified 01/09/23 13:12) [facility] Medical History (Updated 11/01/22 @ 09:49 by Cas Reyna MD) Arthritis Atherosclerotic cardiovascular disease Atrial flutter Back pain CHF (congestive heart failure) COVID-19 vaccine series completed CVA (cerebral vascular accident) Elevated cholesterol Essential hypertension Gout Hx of hypercalcemia Myasthenia gravis Ocular myasthenia gravis On anticoagulant therapy On beta loly at home Syncope Thyroid disease Typical atrial flutter Surgical History H/O carotid endarterectomy History of blepharoplasty History of cardiac catheterization (~02/15/18) History of cardiac pacemaker (~04/13/18) History of laparoscopic cholecystectomy History of left cataract surgery Hx of colonoscopy Family History Father No problems noted. 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 Overall normal device function. [id number] Cardiac Device Interrogation, pacemaker Procedure code (CPT) selection complete Assessment & Plan Assessment & Plan (1) Atrial flutter: Code(s): I48.92 - Unspecified atrial flutter Coding Level of Care Code Procedure Only Diagnoses Atrial flutter I48.92 CPT Codes Cardiac Device Check - Cardiac Device 12: [id number] Cardiac Device Interrogation, pacemaker ([id number])
== END ==
PROVIDERS: PCP Internal Medicine; Visit Provider Internal Medicine
DX: I48.92 Unspecified atrial flutter (principal)
CPT/HCPCS: 93294

== ENCOUNTER → 2023-07-19 23:59 | Outpatient (BNV) | payer MEDICARE, SELFPAY ==
--- NOTE | 2023-07-19 12:34 | A.OFFVIS_ITS ---
Intake Intake Visit Reasons: Remote Device Check- [employer] Allergies No Known Allergies Allergy (Verified 01/09/23 13:12) [facility] Medical History (Updated 11/01/22 @ 09:49 by Cas Reyna MD) Atrial flutter COVID-19 vaccine series completed Myasthenia gravis CHF (congestive heart failure) Syncope Elevated cholesterol On beta loly at home On anticoagulant therapy Arthritis Back pain Gout Thyroid disease Hx of hypercalcemia CVA (cerebral vascular accident) Essential hypertension Ocular myasthenia gravis Typical atrial flutter Atherosclerotic cardiovascular disease Surgical History H/O carotid endarterectomy History of blepharoplasty History of cardiac catheterization (~02/15/18) History of cardiac pacemaker (~04/13/18) History of laparoscopic cholecystectomy History of left cataract surgery Hx of colonoscopy Family History Father No problems noted. 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 Overall normal device function. [id number] Cardiac Device Interrogation, pacemaker Procedure code (CPT) selection complete Assessment & Plan Assessment & Plan (1) Atrial flutter: Code(s): I48.92 - Unspecified atrial flutter Plan x Coding Level of Care Code Procedure Only Diagnoses Atrial flutter I48.92 CPT Codes Cardiac Device Check - Cardiac Device 12: [id number] Cardiac Device Interrogat ion, pacemaker ([id number])
== END ==
PROVIDERS: PCP Internal Medicine; Visit Provider Internal Medicine
DX: I48.92 Unspecified atrial flutter (principal); Z95.0 Presence of cardiac pacemaker
CPT/HCPCS: 93294